=== PATIENT | male | born 1950 | race Caucasian/White ===

== ENCOUNTER 2016-08-07 15:22 | Outpatient (CLI) | payer MEDICARE, OTHER | END 2016-08-07 15:23 | disposition home or self-care (01) | DX: R22.42 Localized swelling, mass and lump, left lower limb (principal); R60.9 Edema, unspecified ==

== ENCOUNTER 2017-04-12 21:09 | Outpatient (CLI) | payer MEDICARE, OTHER | END 2017-04-12 21:10 | disposition critical access hospital (66) | LOC: EMS 21:09 | PROVIDERS: ATTEND Surgery | DX: M25.551 Pain in right hip (principal); W10.9XXA Fall (on) (from) unspecified stairs and steps, initial encounter; Y93.01 Activity, walking, marching and hiking; Y92.009 Unspecified place in unspecified non-institutional (private) residence as the place of occurrence of the external cause | CPT/HCPCS: A0425; A0429 ==

== ENCOUNTER 2017-04-12 21:15 | Inpatient (IN) | payer MEDICARE, OTHER ==
--- NOTE | 2017-04-12 22:42 | XRAY Preliminary Report ---
Exam: XR Hip w/Pelvis 2-3V RT IMPRESSION: 1. Subcapital right hip fracture. [facility] SITE ID: [id number]
--- NOTE | 2017-04-12 22:45 | XRAY Report ---
EXAM: RIGHT HIP AND PELVIS RADIOGRAPHY EXAM DATE: 04/12/2017 10:22 PM. HISTORY: Fall on right hip pain in groin. COMPARISONS: 03/23/2014. TECHNIQUE: 1 view of the pelvis and 1 view of the hip. FINDINGS: Bones: Subcapital right hip fracture. Joints: The bilateral hip, pubis symphysis, and sacroiliac joints are preserved. Soft Tissues: Radiation seeds in the prostate. IMPRESSION: 1. Subcapital right hip fracture. [facility] Referring Provider Line: [phone] SITE ID: [id number]
--- NOTE | 2017-04-12 22:52 | ED Physician Documentation ---
PD HPI LOWER EXT INJURY - Stated complaint Stated Complaint: FALL - Chief complaint Chief Complaint: Trauma Ext - History obtained from History obtained from: Patient, Family - History of Present Illness PD HPI LOW EXT INJURY LOCATION: Right, Hip Type of injury: Fall Where injury occurred: Home Timing - onset: Today Timing - duration: Minutes Timing - details: Abrupt onset, Still present Improved by: Rest, Immobilization Worsened by: Moving, Palpating Associated symptoms: No: Weakness, Numbness, Tingling, Swelling Contributing factors: No: Anticoagulated Similar symptoms before: Has not had sx before Recently seen: Not recently seen - Additional information Additional information: 67-year-old male with a history of prostate cancer has had a fall in his home this evening when he missed the last step and fell onto some linoleum on his right hip. He has severe pain in hip and is unable to get up and walk. He is brought into the hospital by EMS and while he is supine and not moving his pain is tolerable. If he moves his leg at all it hurts a lot. Review of Systems Constitutional: denies: Fever Eyes: denies: Decreased vision Ears: denies: Ear pain Nose: denies: Congestion Throat: denies: Sore throat Cardiac: denies: Chest pain / pressure, Palpitations Respiratory: reports: Cough. denies: Dyspnea GI: denies: Abdominal Pain, Nausea, Vomiting, Constipation, Diarrhea : denies: Dysuria, Frequency Skin: denies: Rash, Lesions Musculoskeletal: reports: Extremity pain, Joint pain. denies: Neck pain, Back pain Neurologic: denies: Generalized weakness, Focal weakness, Numbness PD PAST MEDICAL HISTORY - Past Medical History Cardiovascular: Hypertension GI: GERD : Incontinence Psych: None Musculoskeletal: Osteoarthritis - Past Surgical History Past Surgical History: Yes General: EGD, Colonoscopy Ortho: Knee replacement, Other - Present Medications Home Medications: Ambulatory Orders Medication Instructions Recorded Confirmed Atenolol 25 mg PO DAILY 12/06/12 04/12/17 B Complex C 11/Calcium/Dha/Q10 1 tab PO DAILY 12/06/12 04/12/17 [Brain Zegki-Kut-Oe Q10 Tablet] Mvi, Adult No.4 with Vit K 1 tab PO DAILY 12/06/12 04/12/17 [Infuvite Adult] Omeprazole 20 mg PO BID 12/06/12 04/12/17 oxyCODONE [Roxicodone] 5 mg PO Q4-6H 12/06/12 04/12/17 Ascorbic Acid [Vitamin C] 500 mg PO DAILY 04/12/17 04/12/17 Lutein/Zeaxanthin [Ocuvite Lutein 1 cap PO DAILY 04/12/17 04/12/17 25-5 mg Softgel] Magnesium Oxide [Magnesium] 500 mg PO DAILY 04/12/17 04/12/17 Valerian Root Extract [Valerian] 150 mg PO QPM PRN 04/12/17 04/12/17 - Allergies Allergies/Adverse Reactions: Allergies Allergy/AdvReac Type Severity Reaction Status Date / Time Iodinated Contrast- Oral and Allergy Intermediate Itching Verified 04/12/17 21: 18 IV Dye - Social History Does the pt smoke?: No Smoking Status: Never smoker Does the pt drink ETOH?: Yes Does the pt have substance abuse?: No PD ED PE NORMAL - Vitals Vital signs reviewed: Yes (Hypertensive) - General General: Alert and oriented X 3, No acute distress, Well developed/nourished - HEENT HEENT: Atraumatic, PERRL - Neck Neck: Supple, no meningeal sign, No bony TTP - Cardiac Cardiac: RRR, No murmur - Respiratory Respiratory: No respiratory distress, Clear bilaterally - Abdomen Abdomen: Soft, Non tender - Back Back: No CVA TTP, No spinal TTP - Derm Derm: Normal color, Warm and dry, No rash - Extremities Extremities: No deformity, No edema, Other (There is no shortening of the right leg there is pain with any movement of the leg especially with external rotation. The pain seems to be centered in the groin.) - Neuro Neuro: No motor deficit, No sensory deficit - Psych Psych: Normal mood, Normal affect Results - Vitals Vitals: Vital Signs - 24 hr 04/12/17 21:24 Temperature 37.0 C Heart Rate 83 Respiratory 18 Rate Blood Pressure 158/86 H O2 Saturation 95 Oxygen O2 Source Room air - EKG (time done) 0219 Rate: Rate (enter#) (77) Rhythm: NSR, LAE QRS: Low voltage Compare to prior EKG: Old EKG unavailable Computer interpretation: Agree with computer - Labs Labs: Laboratory Tests 04/13/17 01:55 WBC 12.8 H RBC 4.70 Hgb 14.5 Hct 41.5 L MCV 88.3 MCH 30.8 MCHC 34.9 RDW 13.5 Plt Count 152 MPV 7.6 Neut # 11.4 H Lymph # 0.8 L Hamilton # 0.6 Eos # 0.0 Baso # 0.0 Absolute Nucleated RBC 0.01 Nucleated RBCs 0.1 - Rads (name of study) Right hip Radiology: Prelim report reviewed (Impression: 1. Subcapital right hip fracture.), EMP read indepedently, See rad report PD MEDICAL DECISION MAKING - ED course Complexity details: reviewed old records, reviewed results, re-evaluated patient , considered differential, d/w patient, d/w family ED course: 67-year-old male with a fall in his home has fractured his right hip. Dr. Ray Ma is consulted in the case and would like us to consult medicine for admission.The patient appears comfortable when he is not moving at all. Departure - Departure Disposition: [address] [facility] DC/Xfer Clinical Impression: Hip fracture Qualifiers: Encounter type: initial encounter Fracture type: closed Laterality: right Qualified Code(s): S72.001A - Fracture of unspecified part of neck of right femur, initial encounter for closed fracture Condition: Stable
[2017-04-13] MEDS ORDERED: KETOROLAC 60 MG/2 ML VIAL IVP STA (00:05)
[2017-04-13] MEDS ORDERED: KETOROLAC 30 MG/ML VIAL ONE ×2 (00:10→00:38)
[2017-04-13] MEDS ORDERED: SODIUM CHLORIDE FLUSH 0.9% 10 ML SYRINGE IVP ONE (00:59)
[2017-04-13 02:11] LABS: BASOPHILS % (AUTO) 0.3 %; EOSINOPHILS % (AUTO) 0.1 %; HCT - HEMATOCRIT 41.5 % (42.0-52.0); HGB - HEMOGLOBIN 14.5 g/dL (14.0-18.0); LYMPHOCYTES # (AUTO) 0.8 10^3/uL (1.5-3.5); LYMPHOCYTES % (AUTO) 6.3 %; MEAN CORPUSCULAR HEMOGLOBIN 30.8 pg (27.0-31.0); MEAN CORPUSCULAR HGB CONC 34.9 g/dL (32.0-36.0); MEAN CORPUSCULAR VOLUME 88.3 fL (80.0-94.0); MEAN PLATELET VOLUME 7.6 fL (7.4-11.4); MONOCYTES # (AUTO) 0.6 10^3/uL (0.0-1.0); MONOCYTES % (AUTO) 4.9 %; NEUTROPHILS # (AUTO) 11.4 10^3/uL (1.5-6.6); NEUTROPHILS % (AUTO) 88.4 %; NUCLEATED RED BLOOD CELLS AUTO 0.1 /100WBC; RED CELL DISTRIBUTION WIDTH 13.5 % (12.0-15.0); UNCORRECTED WHITE BLOOD COUNT 12.8 x10^3/uL; WHITE BLOOD COUNT 12.8 x10^3/uL (4.8-10.8)
[2017-04-13 02:22] LABS: ALBUMIN/GLOBULIN RATIO 1.9 (1.0-2.2); BILIRUBIN,TOTAL 0.8 mg/dL (0.2-1.0); CREATININE 0.8 mg/dL (0.6-1.2); POTASSIUM 4.3 mmol/L (3.5-5.0); TOTAL PROTEIN 6.7 g/dL (6.7-8.2)
--- NOTE | 2017-04-13 02:33 | HISTORY & PHYSICAL EXAMINATION ---
DATE OF ADMISSION: 04/12/2017 PRIMARY CARE PHYSICIAN: Dr. Holbrook CHIEF COMPLAINT: Fall and right hip pain. HISTORY OF PRESENT ILLNESS: The patient is a pleasant 67-year-old white male who was brought into [facility] ER after he suffered a mechanical fall. He was at his home and missed the last step on stairs and that is how he fell on his right side. He denied chest pain, shortness of breath, dizziness, fainting, syncope, fever, or any other symptoms prior to or following the fall. He did not suffer head injury. Upon presentation to the ER the patient was hemodynamically stable and underwent hip and pelvis x-ray, which confirmed right subcapital hip fracture. At the ER no further tests available. EKG and laboratories have not yet been done, and I am awaiting to review those results. The ER physician contacted orthopedic surgeon, Dr. Ma who requested the hospitalist service to admit this patient and he is planning to do surgical repair of the right hip later on 04/13/2017. I am admitting this patient. I am also seeing him for presurgical clearance. The patient reports that he had chest pain and shortness of breath, being fatigued on exertion about a year ago , at which time he underwent a treadmill cardiac stress test ordered by his primary care physician, Dr. Holbrook. The test was negative. Subsequently, the patient's symptoms improved and he attributes those past symptoms of being on a hormonal therapy agent, which he used for prostate cancer. He tells me that this medication he used back then had multiple other side effects such as ankle swelling and most important the profound fatigue. After he stopped taking the medication his symptoms gradually resolved. Most recently he had been walking with his once or twice a day. He walks at least half a mile. During the past few weeks or months he did not have exertional symptoms. PAST MEDICAL HISTORY: 1. Hypertension. 2. History of prostate cancer, had been on hormone therapy, subsequently received radioactive seeds as well. 3. Gastroesophageal reflux. 4. Osteoarthritis with chronic pain occasionally taking opiates, status post left knee replacement, status post shoulder surgery. 5. Degenerative disk disease of the spine status post cervical laminectomy. 5. Status post cholecystectomy in 2013. OUTPATIENT MEDICATIONS: 1. Valerian root extract. 2. Oxycodone p.r.n. 3. Omeprazole. 4. Multivitamin. 5. Ocuvite. 6. Vitamin supplements. 7. Atenolol. 8. Magnesium supplement. ALLERGIES: IODINATED CONTRAST. FAMILY HISTORY: Positive for coronary artery disease and lung cancer in the father. SOCIAL HISTORY: The patient does not smoke. He drinks socially. CODE STATUS: FULL CODE. REVIEW OF SYSTEMS: Please see pertinent positives and negatives listed at History of Present Illness; I completed a 12-point review which was otherwise negative. PHYSICAL EXAMINATION: VITAL SIGNS: Temperature 37 Celsius, heart rate in the 80s, blood pressure 150/ 80, respiratory rate 18, oxygen saturation 95% on room air. GENERAL: The patient is a well developed male who was not in distress. MUSCULOSKELETAL: With decreased range of motion of the right hip and lower extremity. SKIN: Without jaundice or pallor. LYMPH: No lymphedema. NEUROLOGIC: Neurologically alert, oriented, nonfocal. PSYCHIATRIC: Cooperative. HEART: S1, S2. No pathologic murmur. RESPIRATORY: Lungs clear to auscultation without wheeze or crackles. ABDOMEN: Obese, nondistended, benign. Bowel tones present. ASSESSMENT AND PLAN: The patient is a 67-year-old male who is getting admitted after he suffered a mechanical fall and fractured his right hip. He will undergo surgery per the orthopedic service. I am admitting him under the hospitalist service and most likely we will be able to give a presurgical clearance. At this point, I do not see any obvious complication. The patient does not have exertional symptoms. He had been on beta-darrel and during the perioperative period I would probably continue the beta darrel to prevent perioperative cardiac complication. I would also recommend DVT prophylaxis. I am awaiting laboratories and an EKG. Time spent in the care of this patient was 45 minutes. JOB #: [id number] EXT JOB #:[id number] MARTHA
[2017-04-13] MEDS ORDERED: oxyCODONE 5 MG TABLET PO PRN (02:48)
[2017-04-13] MEDS ORDERED: SODIUM CHLORIDE FLUSH 0.9% 10 ML SYRINGE IVP PRN ×2 (02:48→03:12)
[2017-04-13] MEDS ORDERED: ONDANSETRON 4 MG/2 ML VIAL IVP PRN ×2 (02:48→03:12)
[2017-04-13] MEDS ORDERED: ACETAMINOPHEN 325 MG TABLET PO PRN ×2 (02:48→03:12)
[2017-04-13] MEDS ORDERED: MORPHINE 2 MG/ML SYRINGE IVP PRN ×2 (02:48→03:12)
[2017-04-13] MEDS ORDERED: KETOROLAC 15 MG/ML VIAL IVP PRN (02:53)
[2017-04-13] MEDS ORDERED: [UNRECOGNIZED DRUG - OTHER] PO PRN (02:55)
[2017-04-13] MEDS ORDERED: LABETALOL 5 MG/1 ML 20 ML MDV IV PRN ×2 (02:57→03:12)
[2017-04-13] MEDS ORDERED: [UNRECOGNIZED DRUG - OTHER] PO PRN (03:12)
[2017-04-13 03:25] LABS: INR 1.1 (0.8-1.2)
[2017-04-13] MEDS: KETOROLAC 15 MG/ML VIAL IVP PRN (05:24)
[2017-04-13] MEDS ORDERED: LACTATED RINGERS 1,000 ML IV SCH (06:00)
[2017-04-13] MEDS ORDERED: SODIUM CHLORIDE FLUSH 0.9% 10 ML SYRINGE IVP SCH (06:00)
[2017-04-13] MEDS: PANTOPRAZOLE 40 MG TABLET PO SCH ×2 (06:31→16:03)
[2017-04-13] MEDS: SODIUM CHLORIDE FLUSH 0.9% 10 ML SYRINGE IVP SCH ×3 (06:31→22:27)
[2017-04-13] MEDS: LACTATED RINGERS 1,000 ML IV SCH (06:31)
[2017-04-13] MEDS: ENOXAPARIN 40 MG/0.4 ML SYRINGE SUBQ SCH (07:35)
[2017-04-13] MEDS: POLYETHYLENE GLYCOL 3350 17 GM PACKET PO SCH (07:35)
[2017-04-13] MEDS ORDERED: LUTEIN PO SCH (09:00)
[2017-04-13] MEDS ORDERED: ATENOLOL 25 MG TABLET PO SCH (09:00)
[2017-04-13] MEDS ORDERED: MAGNESIUM OXIDE 500 MG PO SCH ×2 (09:00)
[2017-04-13] MEDS ORDERED: DHA PO SCH (09:00)
[2017-04-13] MEDS ORDERED: [UNRECOGNIZED DRUG - REMARK] PO SCH (09:00)
[2017-04-13] MEDS ORDERED: CALCIUM PO SCH (09:00)
[2017-04-13] MEDS ORDERED: ZEAXANTHIN PO SCH (09:00)
[2017-04-13] MEDS ORDERED: [UNRECOGNIZED DRUG - OTHER] PO SCH (09:00)
[2017-04-13] MEDS ORDERED: POLYETHYLENE GLYCOL 3350 17 GM PACKET PO SCH (09:00)
[2017-04-13] MEDS ORDERED: FAMOTIDINE 20 MG TABLET PO SCH (09:00)
[2017-04-13] MEDS ORDERED: ENOXAPARIN 40 MG/0.4 ML SYRINGE SUBQ SCH (09:00)
[2017-04-13] MEDS ORDERED: NON FORMULARY MED (Omeprazole [Omeprazole] 20 MG) PO SCH ×2 (09:00)
[2017-04-13] MEDS ORDERED: ASCORBIC ACID 500 MG PO SCH ×2 (09:00)
[2017-04-13] MEDS: MAGNESIUM OXIDE 400 MG TABLET PO SCH (10:39)
[2017-04-13] MEDS: [UNRECOGNIZED DRUG - REMARK] PO SCH (10:39)
[2017-04-13] MEDS: DHA PO SCH (10:39)
[2017-04-13] MEDS: CALCIUM PO SCH (10:39)
[2017-04-13] MEDS: OCUVITE LUTEIN PO SCH (10:39)
[2017-04-13] MEDS: [UNRECOGNIZED DRUG - OTHER] PO SCH (10:39)
[2017-04-13] MEDS: ASCORBIC ACID CHEW 500 MG TABLET PO SCH (10:39)
[2017-04-13] MEDS: ATENOLOL 25 MG TABLET PO SCH (10:42)
[2017-04-13] MEDS ORDERED: LACTATED RINGERS 1,000 ML IV ONE ×2 (15:12)
[2017-04-13] MEDS ORDERED: BUPIVACAINE 0.25%-EPI 1:200000 PF 30 ML VIAL SUBQ ONE ×3 (15:12→15:50)
[2017-04-13] MEDS ORDERED: MIDAZOLAM 2 MG/2 ML VIAL IVP ONE (15:45)
[2017-04-13] MEDS ORDERED: KETOROLAC 30 MG/ML VIAL IVP ONE (15:45)
[2017-04-13] MEDS ORDERED: DEXAMETHASONE 4 MG/ML VIAL IVP ONE (15:45)
[2017-04-13] MEDS ORDERED: PROPOFOL 200 MG/20 ML VIAL IVP ONE (15:45)
[2017-04-13] MEDS ORDERED: fentaNYL 100 MCG/2 ML VIAL IVP ONE (15:45)
[2017-04-13] MEDS ORDERED: LIDOCAINE-PF 2% 10 ML AMP SUBQ ONE (15:45)
[2017-04-13] MEDS ORDERED: ONDANSETRON 4 MG/2 ML VIAL IVP ONE (15:45)
[2017-04-13] MEDS ORDERED: ACETAMINOPHEN 1,000 MG/100 ML 100 ML IV PRN (15:53)
--- NOTE | 2017-04-13 16:00 | CONSULTATION NOTE ---
Referring Provider Name of Referring Provider:: ED Consult Date: 04/13/17 Chief Complaint - Chief Complaint Chief Complaint: Right Hip Pain After fall from step History of Present Illness - Admitted From Admitted From:: ED - History Obtained From Records Reviewed: ED, [facility] History obtained from: Patient - History of Present Illness HPI Comment/Other: This 67 yo male missed the bottom step coming down stairs in his home, landing directly on his Right hip on the floor. He had immediate pain and was unable to bear weight. He was transported to the ED at [facility] where radiographs confirmed a Garden I Right Femoral Neck Fracture. He was admitted to the Hospitalist service and Orthopaedic Surgery was consulted. He denies LOC, Syncope, Dizziness, or other precipitating events. He denies other injuries. 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 - POLST Patient has POLST: No POLST Status: Full Code Meds/Allgy - Home Medications Home Medications: Ambulatory Orders Medication Instructions Recorded Confirmed Atenolol 25 mg PO DAILY 12/06/12 04/12/17 B Complex C 11/Calcium/Dha/Q10 1 tab PO DAILY 12/06/12 04/12/17 [Brain Oegcc-Nhj-Yu Q10 Tablet] Mvi, Adult No.4 with Vit K 1 tab PO DAILY 12/06/12 04/12/17 [Infuvite Adult] Omeprazole 20 mg PO BID 12/06/12 04/12/17 oxyCODONE [Roxicodone] 5 mg PO Q4-6H 12/06/12 04/12/17 Ascorbic Acid [Vitamin C] 500 mg PO DAILY 04/12/17 04/12/17 Lutein/Zeaxanthin [Ocuvite Lutein 1 cap PO DAILY 04/12/17 04/12/17 25-5 mg Softgel] Magnesium Oxide [Magnesium] 500 mg PO DAILY 04/12/17 04/12/17 Valerian Root Extract [Valerian] 150 mg PO QPM PRN 04/12/17 04/12/17 - Allergies Allergies/Adverse Reactions: Allergies Allergy/AdvReac Type Severity Reaction Status Date / Time Iodinated Contrast- Oral and Allergy Intermediate Itching Verified 04/12/17 21: 18 IV Dye Review of Systems - Genitourinary Genitourinary: reports: Incontinence, Other (Prostate Cancer) Exam - Vital Signs Reviewed Vital Signs: Yes Vital Signs: Vital Signs x48h Temp Pulse Resp BP Pulse Ox 04/13/17 15:52 100 04/13/17 12:13 36.8 C 72 18 137/76 H 95 - Physical Exam General Appearance: positive: No acute distress, Alert Eyes Bilateral: positive: Normal inspection ENT: positive: ENT inspection nml Neck: positive: Nml inspection Respiratory: positive: No respiratory distress, Breath sounds nml Cardiovascular: positive: Regular rate & rhythm Peripheral Pulses: positive: 2+ Abdomen: positive: Non-tender, Nml bowel sounds, No distention. negative: Guarding Back: positive: Nml inspection Skin: positive: Color nml, No rash, Warm, Dry Extremities: positive: Other (Tender with any manipulation of Right hip. Keeps Right leg in externally rotated position.). negative: Pedal edema, Calf tenderness, Obey's sign/cords Neurologic/Psychiatric: positive: Oriented x3, Motor nml, Sensation nml, Mood/ affect nml Conclusion/Plan - Diagnosis Diagnosis: 1. Right Femoral Neck Garden I (Nondisplaced) Fracture, closed. 2. Fall from one height to another. 3. Hypertension. 4. Incontinence secondary to Prostate cancer and treatment. - Plan Plan: To OR for percutaneous screw fixation of Right Femoral Neck Fracture. - Lab Results Fish Bones: 04/13/17 01:55 04/13/17 01:55 - Diagnostic Imaging Results Diagnostic Imaging Results: positive: Read independently (Right Garden I Femoral Neck Fracture.)
--- NOTE | 2017-04-13 16:11 | OPERATIVE REPORT ---
Operative Report - General Admit Date: 04/13/17 Procedure Date: 04/13/17 Pre-Op Diagnosis: Right Garden I Femoral Neck Fracture Procedure Performed: Percutaneous screw fixation Right Femoral Neck Fracture. Post Op Diagnosis: Same. - Procedure Note Primary Surgeon: Andrea Ma MD Anesthesia Provider: Hadley Johns CRNA Anesthesia Technique: General ET tube, Local Pathology: Same IV Fluids (mL): 1,000 Estimated Blood Loss (mL): 25 Complications: None. - Other Other Information/Narrative: 1. Disposition: PACU >> [facility] 2. Condition: Stable. 3. Implants: Synthes 7,3 mm Cannulated screws, 32 mm thread lenght x 3; 100, 95 , & 95 mm. 4. Plan: Mobilize with PT in am, crutch or walker ambulation, touch down weight bearing Right Lower Extremity. Then discharge to home.
--- NOTE | 2017-04-13 16:18 | Discharge Plan ---
Discharge Plan Diet: Regular Activity Restrictions: TDWB RLE with walker/crut Shower Restrictions: No Driving Restrictions: Yes Assistance Devices: Walker, Crutches Weight Bearing: Touchdown Weightbearing R No Smoking: If you smoke, Please STOP! Call for help. <Andrea Ma - Last Filed: 04/13/17 16:14> Diet: Cardiac Activity Restrictions: Activity as Tolerated Shower Restrictions: No Driving Restrictions: No Weight Bearing: Other (PER ORTHOPEDIC) Follow-Up Care: Outpatient Rehab - PT No Smoking: If you smoke, Please STOP! Call for help. <Gi Salazar - Last Filed: 04/14/17 13:52> Disposition: 01 Home, Self Care Condition: Good Instruction Topics: Hip Safety Master Daily Tasks, Fx Hip Common Questions Additional Instructions or Follow Up instructions: PLEASE CONTINUE TO FOLLOWUP WITH ORTHOPEDIC FOR FURTHER ORDERS FOR HIP FRACTURE. PLEASE CONTINUE TO DO PHYSICAL THERAPY AND ADVANCE TOLERATED WITH TOE TOUCH TO FULL WEIGHT TAKE ALL HOME MEDICATIONS ORDERED. TYLENOL IS GOOD FOR PAIN. GET PLENTY OF REST AND WALK MUCH POSSIBLE AND TOLERATED PLEASE SEE YOUR PRIMARY CARE PROVIDER WITHIN THE NEXT WEEK FOR EVALUATION AND FURTHER PLANS RETURN TO THE ER IF SYMPTOMS WORSEN OR IF YOU HAVE CHEST PAIN OR SHORTNESS OF BREATH OR FEVER Follow-up with: Andrea Ma MD [Provider Admit Priv/Credential] -
--- NOTE | 2017-04-13 16:29 | XRAY Report ---
RIGHT HIP X-RAY: 04/13/2017 HISTORY: Right hip fracture, for ORIF. FINDINGS/IMPRESSION: Two views of the right hip are obtained during ORIF of a fracture. Three screws are in place. JOB #: [id number] EXT JOB #: [id number] MTDYulisa
[2017-04-13] MEDS: oxyCODONE 5 MG TABLET PO PRN (16:51)
[2017-04-13] MEDS: ASPIRIN EC 325 MG TABLET PO SCH ×3 (22:27→23:32)
[2017-04-14] MEDS: LACTATED RINGERS 1,000 ML IV SCH (00:50)
[2017-04-14] MEDS: oxyCODONE 5 MG TABLET PO PRN ×2 (05:12→10:02)
[2017-04-14 05:50] LABS: BASOPHILS % (AUTO) 0.2 %; EOSINOPHILS # (AUTO) 0.1 10^3/uL (0.0-0.7); EOSINOPHILS % (AUTO) 1.2 %; HCT - HEMATOCRIT 40.6 % (42.0-52.0); HGB - HEMOGLOBIN 14.2 g/dL (14.0-18.0); LYMPHOCYTES # (AUTO) 0.9 10^3/uL (1.5-3.5); LYMPHOCYTES % (AUTO) 8.6 %; MEAN CORPUSCULAR HGB CONC 35.1 g/dL (32.0-36.0); MEAN CORPUSCULAR VOLUME 88.4 fL (80.0-94.0); MEAN PLATELET VOLUME 7.5 fL (7.4-11.4); MONOCYTES # (AUTO) 0.5 10^3/uL (0.0-1.0); MONOCYTES % (AUTO) 4.8 %; NEUTROPHILS # (AUTO) 9.2 10^3/uL (1.5-6.6); NEUTROPHILS % (AUTO) 85.2 %; NUCLEATED RED BLOOD CELLS AUTO 0.1 /100WBC; RED BLOOD COUNT 4.59 10^6/uL (4.70-6.10); RED CELL DISTRIBUTION WIDTH 13.2 % (12.0-15.0); UNCORRECTED WHITE BLOOD COUNT 10.8 x10^3/uL; WHITE BLOOD COUNT 10.8 x10^3/uL (4.8-10.8)
[2017-04-14 06:09] LABS: ALBUMIN/GLOBULIN RATIO 1.6 (1.0-2.2); BILIRUBIN,TOTAL 0.8 mg/dL (0.2-1.0); CALCIUM 9.5 mg/dL (8.5-10.3); CREATININE 0.9 mg/dL (0.6-1.2); MAGNESIUM 2.1 mg/dL (1.7-2.8); PHOSPHORUS 2.8 mg/dL (2.5-4.6); POTASSIUM 4.7 mmol/L (3.5-5.0); TOTAL PROTEIN 6.3 g/dL (6.7-8.2)
[2017-04-14] MEDS: SODIUM CHLORIDE FLUSH 0.9% 10 ML SYRINGE IVP SCH ×2 (06:32→14:26)
[2017-04-14] MEDS: PANTOPRAZOLE 40 MG TABLET PO SCH (06:32)
[2017-04-14] MEDS: MAGNESIUM OXIDE 400 MG TABLET PO SCH (09:29)
[2017-04-14] MEDS: ASCORBIC ACID CHEW 500 MG TABLET PO SCH (09:29)
[2017-04-14] MEDS: ATENOLOL 25 MG TABLET PO SCH (09:29)
[2017-04-14] MEDS: ASPIRIN EC 325 MG TABLET PO SCH (09:29)
[2017-04-14] MEDS: ENOXAPARIN 40 MG/0.4 ML SYRINGE SUBQ SCH (09:29)
[2017-04-14] MEDS: KETOROLAC 15 MG/ML VIAL IVP PRN (09:29)
[2017-04-14] MEDS: DHA PO SCH (09:30)
[2017-04-14] MEDS: [UNRECOGNIZED DRUG - REMARK] PO SCH (09:30)
[2017-04-14] MEDS: OCUVITE LUTEIN PO SCH (09:30)
[2017-04-14] MEDS: [UNRECOGNIZED DRUG - OTHER] PO SCH (09:30)
[2017-04-14] MEDS: CALCIUM PO SCH (09:30)
[2017-04-14] MEDS: POLYETHYLENE GLYCOL 3350 17 GM PACKET PO SCH (10:01)
[2017-04-14 13:09] VITALS: BP 139/86
--- NOTE | 2017-04-14 13:58 | DISCHARGE SUMMARY ---
"Discharge Summary Admit Date: 04/13/17 Discharge Date: 04/14/17 Discharging Provider: JEFF ACUÑA APRN Code Status: Attempt Resuscitation Condition at Discharge: Good Discharge Disposition: 01 Home, Self Care Discharge Facility Name: HOME - DIAGNOSES Admission Diagnoses: Diagnosis: 1. Right Femoral Neck Garden I (Nondisplaced) Fracture, closed with screwed fixation 2. Fall from one height to ground level, acute 3. Essential benign Hypertension. 4. Incontinence secondary to Prostate cancer and treatment Discharge Diagnoses with Status of Each Condition: Diagnosis: 1. Right Femoral Neck Garden I (Nondisplaced) Fracture, closed with screwed fixation 2. Fall from one height to ground level, acute 3. Essential benign Hypertension. 4. Incontinence secondary to Prostate cancer and treatment - HPI History of Present Illness: This 67 yo male missed the bottom step coming down stairs in his home, landing directly on his Right hip on the floor. He had immediate pain and was unable to bear weight. He was transported to the ED at [facility] where radiographs confirmed a Garden I Right Femoral Neck Fracture. He was admitted to the Hospitalist service and Orthopaedic Surgery was consulted. - CONSULTS | PROCEDURES Consultations: DR JOSEPH-ORTHO - HOSPITAL COURSE Hospital Course: 67-year-old male with a history of prostate cancer has had a fall in his home this evening when he missed the last step and fell onto some linoleum on his right hip. He has severe pain in hip and is unable to get up and walk. He is brought into the hospital by EMS and while he is supine and not moving his pain is tolerable. While in the ER he was found to have a right subcapital hip fracture. He was taken to the OR the next morning with Dr Ray Joseph. He had percutaneous screw fixation of the right femoral neck fracture in the OR for Right Femoral Neck Garden I (Nondisplaced) Fracture, closed. He was started on IVF NS and LR for gentle hydration. NPO on first night before surgery. He was given tylenol and toradol for pain. He was given oxycodone for the severe pain. He continued on home medications and supplements after surgery. He continued on his home dosage atenolol for blood pressure. Urinary output was monitored for retention due to his BPH. he worked with PT prior to discharge. His pain was well controlled. He was on a regular diet. he had daily lab draws and all lab values were within normal limits at discharge. He was on DVT prophylaxis during treatment. He was discharged home with family and for followup with orthopedic and outpatient physical therapy. - ALLERGIES Allergies/Adverse Reactions: Allergies Allergy/AdvReac Type Severity Reaction Status Date / Time Iodinated Contrast- Oral and Allergy Intermediate Itching Verified 04/12/17 21: 18 IV Dye - MEDICATIONS Home Medications: Ambulatory Orders Medication Instructions Recorded Confirmed Atenolol 25 mg PO DAILY 12/06/12 04/12/17 B Complex C 11/Calcium/Dha/Q10 1 tab PO DAILY 12/06/12 04/12/17 [Brain Jwxyl-Ypy-Wu Q10 Tablet] Mvi, Adult No.4 with Vit K 1 tab PO DAILY 12/06/12 04/12/17 [Infuvite Adult] Omeprazole 20 mg PO BID 12/06/12 04/12/17 oxyCODONE [Roxicodone] 5 mg PO Q4-6H 12/06/12 04/12/17 Ascorbic Acid [Vitamin C] 500 mg PO DAILY 04/12/17 04/12/17 Lutein/Zeaxanthin [Ocuvite Lutein 1 cap PO DAILY 04/12/17 04/12/17 25-5 mg Softgel] Magnesium Oxide [Magnesium] 500 mg PO DAILY 04/12/17 04/12/17 Valerian Root Extract [Valerian] 150 mg PO QPM PRN 04/12/17 04/12/17 Acetaminophen [Tylenol] 650 mg PO Q4HR PRN #0 tablet 04/13/17 Aspirin EC [Ecotrin] 325 mg PO BID tablet 04/13/17 - PHYSICAL EXAM AT DISCHARGE General Appearance: positive: No acute distress, Alert Eyes Bilateral: positive: Normal inspection, PERRL, EOMI ENT: positive: ENT inspection nml, Pharynx nml, No signs of dehydration Neck: positive: Nml inspection, Thyroid nml, No JVD Respiratory: positive: Chest non-tender, No respiratory distress, Breath sounds nml Cardiovascular: positive: Regular rate & rhythm, No murmur, No gallop Peripheral Pulses: positive: 2+ Abdomen: positive: Non-tender, No organomegaly, Nml bowel sounds, No distention Rectal: positive: Non-tender Back: positive: Nml inspection, CVA tenderness (R) Skin: positive: Color nml, No rash, Warm, Dry Extremities: positive: Non-tender, Full ROM, Nml appearance Neurologic/Psychiatric: positive: Oriented x3, CN's nml (2-12), Motor nml, Sensation nml, Mood/affect nml - LABS Result Diagrams: 04/14/17 05:09 04/14/17 05:09 Other Lab Results: Abnormal Lab Results 04/13/17 04/13/17 04/13/17 01:55 01:55 01:55 WBC 12.8 x10^3/uL H x10^3/uL (4.8-10.8) RBC Hct 41.5 % L % (42.0-52.0) Neut # 11.4 10^3/uL H 10^3/uL (1.5-6.6) Lymph # 0.8 10^3/uL L 10^3/uL (1.5-3.5) PT 13.0 secs H secs (9.9-12.6) Anion Gap Estimated GFR (MDRD) Glucose 132 mg/dL H mg/dL (70-100) Total Protein 04/14/17 04/14/17 05:09 05:09 WBC RBC 4.59 10^6/uL L 10^6/uL (4.70-6.10) Hct 40.6 % L % (42.0-52.0) Neut # 9.2 10^3/uL H 10^3/uL (1.5-6.6) Lymph # 0.9 10^3/uL L 10^3/uL (1.5-3.5) PT Anion Gap 5.0 L (6-13) Estimated GFR (MDRD) 84 L (>89) Glucose 118 mg/dL H mg/dL (70-100) Total Protein 6.3 g/dL L g/dL (6.7-8.2) - DIAGNOSTIC IMAGING Diagnostic Imaging Results: Final report reviewed - FOLLOW UP Follow Up: Patient was instructed to followup with orthopedic with Dr Ray Joseph. He was to see his primary care provider within one week of discharge. He verbally understood all instructions given. Patient was take home with family and vital signs were stable. Time spent on discharge was 40 minutes for planning and assessment - TIME SPENT Time Spent in Discharge (Minutes): 40 (discharge assessment and planning)"
--- NOTE | 2017-04-20 12:47 | XRAY Report ---
Fluoroscopy time only, no images submitted for interpretation. Fluoroscopy time 0 minutes, 34 seconds. MTDD
--- NOTE | 2017-05-17 00:35 | OPERATIVE REPORT ---
DATE OF SURGERY: 04/13/2017 00:00:00 PREOPERATIVE DIAGNOSIS: Right Garden 1 femoral neck fracture. POSTOPERATIVE DIAGNOSIS: Right Garden 1 femoral neck fracture. NAME OF PROCEDURE: Percutaneous screw fixation of the right femoral neck fracture. SURGEON: Andrea Ma MD. ANESTHESIA: Hadley Johns CRNA. ANESTHESIA TECHNIQUE: General endotracheal and local. PATHOLOGY: Same. FLUIDS: 1000 of lactated Ringer's. BLOOD LOSS: 25 mL. COMPLICATIONS: None. DISPOSITION: PACU, then Med/Surg. CONDITION: Stable. IMPLANTS Synthes 7.3 mm cannulated screws with 32 mm thread length times x 3 of 100, 95 and 95 mm in length. PLAN: To mobilize the patient in the morning with crutch walker ambulation, touchdown weightbearing r ight lower extremity and then discharged to home. INDICATIONS: This is an otherwise healthy 67-year-old male who sustained a minimally displaced, close d fracture of his right femoral neck (Garden 1) in a ground level fall. He was evaluated in the emerg ency department with radiographs and admitted to Med-Surg. Consultation was provided and care was dis cussed extensively with the patient. We agreed to proceed with a percutaneous screw fixation of a rig ht garden 1 femoral neck fracture. PROCEDURE IN DETAIL: After consent and identification, the patient was brought to the operating room in a supine position on the operating litter. After induction of a general endotracheal anesthesia an d appropriate monitoring, the patient was transferred to the fracture table with the right lower extr emity placed in the traction boot, left lower extremity placed in the Christos stirrup and a padded blake hermelinda post was placed in the perineum. Fluoroscopy was used to verify adequate reduction of the garden 1 femoral neck fracture and that it had not displaced. We then prepped and draped the right hip in t he usual sterile fashion with using a shower curtain. After an appropriate timeout was conducted, we made a lateral incision targeted with fluoroscopic que mendosa inferior to the trochanteric ridge. A small stab wound of approximately 2.5 cm in length was us ed. Through this stab wound we penetrated the iliotibial band and under fluoroscopic guidance advance d 3 guidewires into the femoral neck verifying our position in the anterior, inferior posterior, and central position with AP and lateral fluoroscopy. The guidewires were measured and 3 percutaneous scr ews were inserted using standard AO technique by cannulated drilling over the wires and then advancin g the screws with 32 mm thread length. Position of all 3 screws was verified. The guidewires were rem kirti. The incision was irrigated thoroughly and closed with 2 interrupted subcuticular 2-0 Vicryl sut ures. Mastisol and Steri-Strips with a sterile [place] dressing. On completion of procedure, the patient was extubated and transferred to the recovery room in good co ndition having tolerated the procedure well. JOB #: [id number] EXT JOB #:[id number]
== END 2017-04-14 16:25 | disposition home or self-care (01) | DRG 482 ==
LOC: EDUNIT# → ED 21:15 → MS2 04-13 02:48 → ED 04-13 02:59
PROVIDERS: ADMIT Internal Medicine; ATTEND Nurse Practitioner
PROC: 0QH634Z Insertion of Internal Fixation Device into Right Upper Femur, Percutaneous Approach (ICD-10-PCS; principal; 2017-04-13 12:00)
DX: S72.011A Unspecified intracapsular fracture of right femur, initial encounter for closed fracture (principal); W10.8XXA Fall (on) (from) other stairs and steps, initial encounter; Y92.008 Other place in unspecified non-institutional (private) residence as the place of occurrence of the external cause; I10 Essential (primary) hypertension; Z85.46 Personal history of malignant neoplasm of prostate; K21.9 Gastro-esophageal reflux disease without esophagitis; M19.90 Unspecified osteoarthritis, unspecified site; N39.498 Other specified urinary incontinence; Z96.652 Presence of left artificial knee joint; Z90.49 Acquired absence of other specified parts of digestive tract; Z79.891 Long term (current) use of opiate analgesic; Z79.899 Other long term (current) drug therapy
CPT/HCPCS: 36415; 80053; 83690; 83735; 84100; 84484; 85025; 85610; 85730; 86850; 86900; 86901; 93005; 96374; 99283; 99284; 99285

== ENCOUNTER 2019-02-16 14:06 | Outpatient (CLI) | payer MEDICARE, OTHER ==
[2019-02-16 14:32] LABS: CREATININE 0.9 mg/dL (0.6-1.2)
[2019-02-16] MEDS ORDERED: IOVERSOL 320 100 ML VIAL IVP ONE ×2 (14:43→17:42)
--- NOTE | 2019-02-16 15:13 | CT Report ---
Reason: PLEURTIC CP Procedure Date: 02/16/2019 Accession Number: [id number] / [id number] Procedure: CT - ANGIO CHEST W/WO CPT Code: FULL RESULT: EXAM: CT ANGIOGRAM CHEST EXAM DATE: 02/16/2019 02:48 PM. CLINICAL HISTORY: PLEURTIC CP. COMPARISON: None. TECHNIQUE: Routine helical imaging was performed through the chest in the pulmonary arterial phase. IV Contrast: OPTI 320 80ML. Reconstructions: Coronal 3-D MIP reconstructions.Sagittal and coronal. In accordance with CT protocol optimization, one or more of the following dose reduction techniques were utilized for this exam: automated exposure control, adjustment of mA and/or KV based on patient size, or use of iterative reconstructive technique. FINDINGS: Pulmonary Arteries: Diagnostic quality: Adequate through the segmental arteries. No evidence for acute or chronic pulmonary emboli. RV/LV is within normal limits. There is no interventricular septal bowing. There is no reflux of contrast material in the IVC. Lungs/Pleura: Mild atelectasis and scarring in right middle lobe, lingual and both lung bases. No consolidation, nodules, or edema. No effusions or pneumothorax. Mediastinum: Normal. No cardiac enlargement or adenopathy. Thoracic Aorta: Unremarkable. Upper Abdomen: Status post cholecystectomy. Other: None. IMPRESSION: Normal pulmonary CT angiogram. No pulmonary emboli. RADIA
== END 2019-02-16 14:07 | disposition home or self-care (01) ==
LOC: DI 14:06
PROVIDERS: ATTEND Internal Medicine
DX: R07.81 Pleurodynia (principal)
CPT/HCPCS: 36415; 71275; 82565; Q9967

== ENCOUNTER 2021-03-01 12:17 | Emergency (ER) | payer MEDICARE, OTHER ==
[2021-03-01] MEDS ORDERED: diphenhydrAMINE INJ 50 MG/ML VIAL IVP STA (12:28)
--- NOTE | 2021-03-01 12:30 | ED Physician Documentation ---
History of Present Illness - Stated complaint Stated Complaint: STROKE SYMPTOMS - Additonal information Additional information: 70-year-old male presents to the emergency department via private vehicle for sudden onset right-sided facial droop that began about 10 to 15 minutes prior to arrival. He began to notice that he could not whistle or speak fluidly and he had some right-sided facial droop of the mouth. He does report that he woke up this morning and thought the vision in his left eye was blurry, so he made an eye appointment for later this afternoon and was going to attend to it, until the noted the right sided droop. hx of prostate cancer (lupron shots Q3 months) and htn and arthritis on plaquenil meds: sulfasalazine, prednisone, plaquenil, atenelol,omeprazole, ruth when pt is in the CT scanner she does report that the patient reported his right upper eye lid was mildly droopy 24 hours ago, but they attributed it to allergies Review of Systems Constitutional: denies: Fever, Chills Eyes: reports: Loss of vision Ears: reports: Reviewed and negative Nose: reports: Reviewed and negative Cardiac: denies: Chest pain / pressure, Palpitations Respiratory: denies: Dyspnea, Cough GI: denies: Abdominal Pain, Nausea, Vomiting : denies: Dysuria Skin: denies: Rash, Lesions Musculoskeletal: denies: Neck pain, Back pain Neurologic: reports: Focal weakness, Difficulty speaking. 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 - Present Medications Home Medications: Ambulatory Orders Medication Instructions Recorded Confirmed B Complex C 11/Calcium/Dha/Q10 1 tab PO DAILY 12/06/12 04/12/17 [Brain Tnhat-Vmg-Kc Q10 Tablet] Mvi, Adult No.4 with Vit K 1 tab PO DAILY 12/06/12 04/12/17 [Infuvite Adult] Omeprazole 20 mg PO BID 12/06/12 04/12/17 atenoloL [Atenolol] 25 mg PO DAILY 12/06/12 04/12/17 oxyCODONE [Roxicodone] 5 mg PO Q4-6H 12/06/12 04/12/17 Ascorbic Acid [Vitamin C] 500 mg PO DAILY 04/12/17 04/12/17 Lutein/Zeaxanthin [Ocuvite Lutein 1 cap PO DAILY 04/12/17 04/12/17 25-5 mg Softgel] Magnesium Oxide [Magnesium] 500 mg PO DAILY 04/12/17 04/12/17 Valerian Root Extract [Valerian] 150 mg PO QPM PRN 04/12/17 04/12/17 Acetaminophen [Tylenol] 650 mg PO Q4HR PRN #0 tablet 04/13/17 Aspirin EC [Ecotrin] 325 mg PO BID tablet 04/13/17 Aspirin [Bucks Aspirin] 81 mg PO DAILY #30 tab.chew 03/01/21 - Allergies Allergies/Adverse Reactions: Allergies Allergy/AdvReac Type Severity Reaction Status Date / Time Iodinated Contrast Media Allergy Intermediate Itching Verified 03/01/21 12:26 - Social History Does the pt smoke?: No Smoking Status: Former smoker Does the pt drink ETOH?: Yes Does the pt have substance abuse?: No - POLST Patient has POLST: No POLST Status: Full Code PD ED PE EXPANDED - General General: Alert, No acute distress, Well developed/nourished - HEENT HEENT: Atraumatic, PERRL - Eyes Eyes: PERRL - Neck Neck: Supple w/out meningeal sx. No: Adenopathy - Cardiac Cardiac: Regular Rate, Radial strong equal, Cap refill < 2 sec. No: Murmur Present - Respiratory Respiratory: Clear to ausultation cecile. No: Distress, Labored - Abdomen Abdomen: Normal Bowel sounds. No: Tender to palpation - Derm Derm: Normal color, Warm and dry - Neuro Neuro: Alert and Oriented X 3. No: CNII-XII intact (right sided facial droop at nasal labial god, right tongue deviation ) - GCS Eye Opening: Spontaneous Motor: Obeys Commands Verbal: Oriented Total: 15 Results - Vitals Vitals: Vital Signs - 24 hr 03/01/21 03/01/21 03/01/21 12:21 12:48 13:02 Temperature 36.6 C Heart Rate 73 69 66 Respiratory 17 19 17 Rate Blood Pressure 133/87 H 135/77 H 125/74 O2 Saturation 98 99 95 03/01/21 13:30 Temperature Heart Rate 65 Respiratory 23 Rate Blood Pressure 110/79 O2 Saturation 98 Oxygen O2 Source Room air - EKG (time done) 1254 Rate: Rate (enter#) (67) Rhythm: NSR [place]: Normal Intervals: Normal CT. No: Prolonged QT QRS: Normal Ischemia: Normal ST segments Compare to prior EKG: Old EKG unavailable Computer interpretation: Agree with computer - Labs Labs: Laboratory Tests 03/01/21 03/01/21 03/01/21 12:30 12:30 12:30 WBC 6.1 RBC 4.28 L Hgb 14.0 Hct 39.4 L MCV 92.1 MCH 32.7 H MCHC 35.5 RDW 13.1 Plt Count 148 MPV 9.1 Neut # (Auto) 4.7 Lymph # (Auto) 0.9 L Sharkey # (Auto) 0.3 Eos # (Auto) 0.1 Baso # (Auto) 0.0 Absolute Nucleated RBC 0.00 Nucleated RBC % 0.0 PT 14.2 H INR 1.3 H Sodium 139 Potassium 4.4 Chloride 106 Carbon Dioxide 26 Anion Gap 7.0 BUN 17 Creatinine 0.8 Estimated GFR (MDRD) 95 Glucose 121 H Calcium 10.6 H Total Bilirubin 0.8 AST 23 ALT 28 Alkaline Phosphatase 64 Troponin I High Sens Total Protein 6.8 Albumin 4.8 Globulin 2.0 L Albumin/Globulin Ratio 2.4 H Lipase 35 03/01/21 12:30 WBC RBC Hgb Hct MCV MCH MCHC RDW Plt Count MPV Neut # (Auto) Lymph # (Auto) Sharkey # (Auto) Eos # (Auto) Baso # (Auto) Absolute Nucleated RBC Nucleated RBC % PT INR Sodium Potassium Chloride Carbon Dioxide Anion Gap BUN Creatinine Estimated GFR (MDRD) Glucose Calcium Total Bilirubin AST ALT Alkaline Phosphatase Troponin I High Sens 2.4 Total Protein Albumin Globulin Albumin/Globulin Ratio Lipase - Rads (name of study) Angio head Radiology: Final report received (Negative for acute intracranial hemorrhage. No significant intracranial abnormality is seen. No significant intracranial arterial abnormalities are seen.) angio neck Radiology: Final report received (No hemodynamically significant stenosis can be seen within the arteries of the neck.) PD MEDICAL DECISION MAKING - ED course Complexity details: reviewed results, re-evaluated patient, d/w patient, d/w family, d/w hr consultant (Dr. Gil neurologist) ED course: 70-year-old male presents to the emergency department for evaluation of acute o nset right-sided facial droop. hx of htn, prostate cancer and RA on plaquenil and steroids. symptoms began at 1210pm. Code stroke was initiated. Screning labs unrevealing, CT angio nead and neck negative. 1310: I have spoken on the phone with Dr. Gil telestroke neurologist. We discussed the history clinical exam findings as well as CT angio head and neck. Given such a low NIH stroke scale score she would not recommend TPA for this gentleman. 1340: Dr. [facility] stroke neurologist has consulted with the patient. She suspects that this may be an early Stacy's palsy despite the obvious lack of forehead involvement at this time. She would recommend initiation of a daily aspirin and an outpatient MRI of his brain. She does not feel that he warrants admission to the hospital at this time. I have reevaluated the patient and he does still persist with a right-sided facial droop and no forehead involvement. I discussed with the patient and his the CT imagings that were fairly unrevealing as well as his lab work, EKG and chest x-ray. First dose of aspirin will be given here in the emergency department. 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 Patient and his were advised to return to the emergency department if he develops any sudden onset headache, loss of vision, or if he develops focal weakness in his arms or legs. Otherwise close follow-up with Dr. Holbrook his primary care provider early next week. Departure - Departure Disposition: 01 Home, Self Care Clinical Impression: Stroke-like symptoms Condition: Stable Record reviewed to determine appropriate education?: Yes Instructions: Stroke Self Care Follow-Up: Gi Holbrook MD [Primary Care Provider] - Prescriptions: Aspirin [Bucks Aspirin] 81 mg PO DAILY #30 tab.chew Comments: Chandler you are seen in the ER today when you developed right-sided facial droop. We did do a CT angiogram of your head and neck that did not show any worrisome findings. Your labs EKG and chest x-ray were all also essentially normal. Because your symptoms were worrisome for stroke you were evaluated by a telestroke neurologist Dr. Gil. As your symptoms are mild and she is not 100% certain that this is a stroke as it may be a form of Stacy's palsy, TPA was not administered. She does recommend very close follow-up with your primary doctor early next week to be have an MRI of your brain arranged. She would also recommend that you start a daily aspirin 81 mg. Continue all your other medications as already sche duled. If at any point you find that you are having a sudden severe headache, any loss of vision any arm or leg weakness you are to return immediately to the ER. NIHSS - Time Time: 12:35 - Level of Consciousness Level of consciousness: (1) Not alert, but arousable by minor stimulation to obey, or answer LOC Questions: (0) Answers both Q's correct LOC Commands: (0) Performs both correctly - Gaze Best Gaze: (0) Normal - Visual Visual: (0) No loss - Facial Palsy Facial Palsy: (1) Minor paralysis - Motor Arms (both separate) Motor Arm (right): (0) No drift Motor Arm (left): (0) No drift - Motor Legs (both separate) Motor Leg (right): (0) No drift Motor Leg (left): (0) No drift - Limb Ataxia Limb Ataxia: (0) Absent - Sensory Sensory: (0) Normal - Best Language Best Language: (0) No aphasia - Dysarthria Dysarthria: (0) Normal - Extinction and Inattention (formally neg Extinction and inattention: (0) No abnormality - Total Score/Results Total Score/Result: 2
[2021-03-01 12:43] LABS: INR 1.3 (0.8-1.2); PT - PROTHROMBIN TIME 14.2 secs (9.9-12.6)
[2021-03-01 12:45] LABS: BASOPHILS % (AUTO) 0.3 %; EOSINOPHILS # (AUTO) 0.1 10^3/uL (0.0-0.7); EOSINOPHILS % (AUTO) 1.3 %; HCT - HEMATOCRIT 39.4 % (42.0-52.0); LYMPHOCYTES # (AUTO) 0.9 10^3/uL (1.5-3.5); MEAN CORPUSCULAR HEMOGLOBIN 32.7 pg (27.0-31.0); MEAN CORPUSCULAR HGB CONC 35.5 g/dL (32.0-36.0); MEAN CORPUSCULAR VOLUME 92.1 fL (80.0-94.0); MEAN PLATELET VOLUME 9.1 fL (7.4-11.4); MONOCYTES # (AUTO) 0.3 10^3/uL (0.0-1.0); MONOCYTES % (AUTO) 5.3 %; NEUTROPHILS # (AUTO) 4.7 10^3/uL (1.5-6.6); NEUTROPHILS % (AUTO) 77.8 %; PLT - PLATELET COUNT 148 10^3/uL (130-450); RED BLOOD COUNT 4.28 10^6/uL (4.70-6.10); RED CELL DISTRIBUTION WIDTH 13.1 % (12.0-15.0); WHITE BLOOD COUNT 6.1 x10^3/uL (4.8-10.8)
--- NOTE | 2021-03-01 13:05 | CT Report ---
PROCEDURE: ANGIO HEAD W/WO INDICATIONS: L sided facial droop CONTRAST: IV CONTRAST: Isovue 300 ml: 80 PO CONTRAST: *NO PO CONTRAST TECHNIQUE: Precontrast 4.5 mm thick angled axial sections acquired from the foramen magnum to the vertex. Afte r the administration of intravenous contrast, 1 mm thick sections acquired through the [place] of [place] is. Postcontrast 4.5 mm thick sections then re-acquired from the foramen magnum to the vertex. 3-di mensional lpftwqo-ncfszoqqo-arcymwknxf (MIP) and/or volume rendering reformats were acquired of the c entral intracranial vasculature. For radiation dose reduction, the following was used: automated ex posure control, adjustment of mA and/or kV according to patient size. COMPARISON: Correlation is made with the accompanying neck CT angiogram, 03/01/2021. FINDINGS: Image quality: Excellent. Anterior circulation: Intracranial internal carotid arteries are normal in size and flow. The flow within the paired anterior cerebral arteries is normal and symmetric. The flow within the middle cer ebral arteries is normal and symmetric. The anterior communicating artery is seen. No aneurysms are seen. Posterior circulation: Bilateral type origins of the posterior cerebral arteries can be seen, w ith an associated hypoplastic basilar artery. The distal vertebral arteries are within normal limits. No aneurysms are seen. CSF spaces: Ventricles are normal in size and shape. Basal cisterns are patent. No extra-axial flu id collections. Brain: No midline shift. No intracranial bleeds or masses. العلي-white matter interface appears int act. Skull and face: Calvarium and facial bones appear intact, without suspicious lesions. Sinuses: Visualized sinuses and mastoids are clear. IMPRESSION: Negative for acute intracranial hemorrhage. No significant intracranial abnormality is seen. No significant intracranial arterial abnormalities are seen. Note: Case discussed by telephone with Melania Thompson at 12:03 PM [place] time on 03/01/2021. Reviewed by: Jose Craig MD on 03/01/2021 12:03 PM AKVITO Approved by: Jose Craig MD on 03/01/2021 12:03 PM AKVITO Station ID: [id number]
--- NOTE | 2021-03-01 13:07 | CT Report ---
PROCEDURE: ANGIO NECK W INDICATIONS: L sided facial droop, L neck pain CONTRAST: IV CONTRAST: Isovue 300 ml: 80 PO CONTRAST: *NO PO CONTRAST TECHNIQUE: After the administration of intravenous contrast, 1.5 mm axial sections acquired from the aortic arch to the [place] of [place]. Coronal 3-D maximum intensity projection (MIP) and/or volume rendering ref ormats were then performed. For radiation dose reduction, the following was used: automated exposur e control, adjustment of mA and/or kV according to patient size. COMPARISON: Correlation is made with the accompanying head CT angiogram, 03/01/2021. FINDINGS: Image quality: There is streak artifact seen to the level of the shoulders. Carotid system: The great vessels demonstrate a conventional anatomy as they arise from the aortic a rch. The origins of the common carotid arteries appear patent. The common carotid arteries demonstr ate normal calibers and courses. The bifurcation regions demonstrate atherosclerotic calcification a nd irregularity, yet without a hemodynamically significant stenosis. The more distal internal caroti d arteries demonstrate normal caliber and course. Posterior circulation: The origins of the vertebral arteries appear patent. The more superior porti ons of the vertebral arteries demonstrate normal course and caliber. They join to form a normal appe aring basilar artery. Soft tissues: Visualized neck soft tissues demonstrate no suspicious abnormalities. The thyroid is normal in size and there are no incidental findings. Bones: No suspicious bony lesions. Relatively prominent cervical spine degenerative changes are see n, with fusion changes inferiorly. There is reversal of the normal cervical lordosis. IMPRESSION: No hemodynamically significant stenosis can be seen within the arteries of the neck. Relatively prominent cervical spine degenerative changes are seen, with fusion changes inferiorly. Note: Case discussed by telephone with Melania Thompson at 12:30 PM [place] time on 03/01/2021. The estimate of stenosis included in the report of the imaging study was calculated using the NASCET method Reviewed by: Jose Craig MD on 03/01/2021 12:06 PM AKDT Approved by: Jose Craig MD on 03/01/2021 12:06 PM AKDT Station ID: [id number]
[2021-03-01 13:15] LABS: ALBUMIN 4.8 g/dL (3.2-5.5); ALBUMIN/GLOBULIN RATIO 2.4 (1.0-2.2); BILIRUBIN,TOTAL 0.8 mg/dL (0.2-1.0); CALCIUM 10.6 mg/dL (8.5-10.3); CREATININE 0.8 mg/dL (0.6-1.2); POTASSIUM 4.4 mmol/L (3.5-5.0); TOTAL PROTEIN 6.8 g/dL (6.7-8.2)
--- NOTE | 2021-03-01 13:38 | XRAY Report ---
PROCEDURE: Chest 1 View X-Ray INDICATIONS: chest pain TECHNIQUE: One view of the chest was acquired. COMPARISON: None FINDINGS: Surgical changes and devices: None. Lungs and pleura: No pleural effusions or pneumothorax. Lungs are clear. Mediastinum: Mediastinal contours appear normal. Heart size is normal. Bones and chest wall: No suspicious bony lesions. Overlying soft tissues appear unremarkable. Bila teral glenohumeral hemiarthroplasty noted. IMPRESSION: No acute cardiopulmonary findings Reviewed by: Cj Negro MD on 03/01/2021 12:37 PM AKDT Approved by: Cj Negro MD on 03/01/2021 12:37 PM AKDT Station ID: [id number]
[2021-03-01] MEDS ORDERED: ASPIRIN CHEW 81 MG TABLET PO STA (13:59)
[2021-03-01 14:17] VITALS: BP 115/81
[2021-03-01] MEDS ORDERED: IOPAMIDOL-300 100 ML VIAL IVP ONE (14:51)
[2021-03-01] MEDS ORDERED: IOPAMIDOL-300 100 ML VIAL ONE (15:18)
== END 2021-03-01 14:17 | disposition home or self-care (01) ==
LOC: ED 12:17
DX: R29.810 Facial weakness (principal); H53.8 Other visual disturbances; R47.9 Unspecified speech disturbances; C61 Malignant neoplasm of prostate; I10 Essential (primary) hypertension; M06.9 Rheumatoid arthritis, unspecified; Z79.52 Long term (current) use of systemic steroids; Z79.899 Other long term (current) drug therapy; Z87.891 Personal history of nicotine dependence
CPT/HCPCS: 36415; 70496; 70498; 71045; 80053; 83690; 84484; 85025; 85610; 93005; 96374; 99284; A9270; J1200; Q9967

== ENCOUNTER 2022-02-12 10:23 | Day surgery (SDC) | payer MEDICARE, OTHER ==
[2022-02-12] MEDS ORDERED: LACTATED RINGERS 1,000 ML IV ONE (10:47)
[2022-02-12] MEDS ORDERED: LIDOCAINE-MPF 2% 5 ML VIAL ONE (11:04)
[2022-02-12] MEDS ORDERED: PROPOFOL 500 MG/50 ML 500 MG/50 ML VIAL ONE (11:04)
--- NOTE | 2022-02-12 11:28 | ANESTHESIA ---
Pre-Anesthesia VS, & Labs - Diagnosis history of ulcers, screening exam - Procedure EGD and colonoscopy Vital Signs: Temp Pulse Resp BP Pulse Ox 35.7 C L 67 16 113/79 95 02/12/22 10:48 02/12/22 10:48 02/12/22 10:48 02/12/22 10:48 02/12/22 10:48 Height: 5 ft 10 in Weight (kg): 102.6 kg Body Mass Index: 32.4 BMI Classification: Obese - NPO >8 hours Home Medications and Allergies Home Medications: Ambulatory Orders Hydroxychloroquine [Plaquenil] 1 tab DAILY 02/11/22 atenoloL [Atenolol] 25 mg PO DAILY 12/06/12 oxyCODONE [Roxicodone] 5 mg PO Q4-6H 12/06/12 Hydroxychloroquine [Plaquenil] 1 tab DAILY 02/11/22 Allergies/Adverse Reactions: Allergies Allergy/AdvReac Type Severity Reaction Status Date / Time Iodinated Contrast Media Allergy Intermediate Itching Verified 02/11/22 13:05 aspirin AdvReac Unknown Verified 02/12/22 10:36 tramadol AdvReac Unknown Verified 02/12/22 10:45 Anes History & Medical History - Anesthetic History Anesthesia Complications: reports: No previous complications - Medical History Cardiovascular: reports: Hypertension Pulmonary: reports: None Gastrointestinal: reports: GERD, Ulcers, Hiatal hernia, Cholelithiasis Urinary: reports: None Neuro: reports: None Musculoskeletal: reports: Osteoarthritis, Other (chronic pain) Endocrine/Autoimmune: reports: None Blood Disorders: reports: Anemia Skin: reports: None Smoking Status: Former smoker (quit 20 years ago) Psychosocial: reports: No issues indicated History of Cancer?: No Other Past Medical History: Autoimmune disorder, unknown type - Surgical History General: reports: Cholecystectomy, Colonoscopy, EGD Cardiothoracic: reports: Cardiac catheterization Urologic: reports: Prostatic surgery (brachytherapy) Gynecologic: reports: Other Orthopedic: reports: Knee replacement, Shoulder arthroplasty, Spine surgery (ACDF C6-T1), Other (hip pinning) Exam General: Alert, Oriented x3, Cooperative, No acute distress Mouth Openin Fingerbreadth Neck Mobility: Normal Mallampati classification: III Thyromental Distance: 4-6 cm Mental/Cognitive Status: Alert/Oriented X3, Normal for patient Plan Anesthesia Type: General, Total IV Consent for Procedure(s) Verified and Reviewed: Yes Code Status: Attempt Resuscitation ASA classification: 3-Severe systemic disease Is this case an emergency?: No
[2022-02-12] MEDS ORDERED: MIDAZOLAM 2 MG/2 ML VIAL ONE (11:52)
[2022-02-12] MEDS ORDERED: fentaNYL 100 MCG/2 ML VIAL ONE (11:53)
[2022-02-12] MEDS ORDERED: BENZOCAINE/TETRACAINE/BUTAMBEN 20 GM TOP ONE ×2 (11:57)
[2022-02-12] MEDS ORDERED: BENZOCAINE/TETRACAINE/BUTAMBEN 20 GM ONE (12:03)
[2022-02-12] MEDS ORDERED: LACTATED RINGERS 200 ML IV ONE (12:30)
[2022-02-12 12:55] VITALS: BP 113/86
--- NOTE | 2022-02-12 13:28 | ANESTHESIA POST OP EVALUATION ---
Anesthesia Post Eval - Post Anesthesia Eval Vitals: Last Vital Signs Temp 36.0 C L 02/12/22 12:54 Pulse 64 02/12/22 12:54 Resp 16 02/12/22 12:54 BP 113/86 H 02/12/22 12:54 Pulse Ox 95 02/12/22 12:54 CV Function Including HR & BP: Stable Pain Control: Satisfactory Nausea & Vomiting: Negative Mental Status: Baseline Respiratory Status: Airway Patent Hydration Status: Satisfactory Anesthesia Complications: None
== END 2022-02-12 10:24 | disposition home or self-care (01) ==
LOC: SDS 10:23
PROVIDERS: ATTEND Surgery
PROC: 0DB78ZX Excision of Stomach, Pylorus, Via Natural or Artificial Opening Endoscopic, Diagnostic (ICD-10-PCS; principal; 2022-02-12 11:30)
DX: Z12.11 Encounter for screening for malignant neoplasm of colon (principal); K29.50 Unspecified chronic gastritis without bleeding; K64.8 Other hemorrhoids; K21.9 Gastro-esophageal reflux disease without esophagitis; K44.9 Diaphragmatic hernia without obstruction or gangrene; I10 Essential (primary) hypertension; E66.9 Obesity, unspecified; Z68.32 Body mass index [BMI] 32.0-32.9, adult; Z87.891 Personal history of nicotine dependence
CPT/HCPCS: 43239; A9270; G0121; J7120

== ENCOUNTER 2022-04-04 08:41 | Outpatient (CLI) | payer MEDICARE, OTHER ==
[2022-04-04 09:17] LABS: ALBUMIN 4.4 g/dL (3.2-5.5); ALBUMIN/GLOBULIN RATIO 1.9 (1.0-2.2); BILIRUBIN,TOTAL 0.7 mg/dL (0.2-1.0); CALCIUM 10.5 mg/dL (8.5-10.3); CREATININE 0.9 mg/dL (0.6-1.2); POTASSIUM 4.6 mmol/L (3.5-5.0); TOTAL PROTEIN 6.7 g/dL (6.7-8.2)
== END 2022-04-04 08:42 | disposition home or self-care (01) ==
LOC: LAB 08:41
PROVIDERS: ATTEND Internal Medicine Hematology & Oncology
DX: C61 Malignant neoplasm of prostate (principal); R74.01 Elevation of levels of liver transaminase levels
CPT/HCPCS: 36415; 80053

== ENCOUNTER 2022-10-09 13:50 | Outpatient (CLI) | payer MEDICARE, OTHER ==
--- NOTE | 2022-10-09 16:50 | MRI Report ---
PROCEDURE: LUMBAR SPINE WO INDICATIONS: NUMBNESS OF LOWER LIMB TECHNIQUE: Noncontrast sagittal T1 spin echo and T2 fast echo, sagittal STIR, axial T1 and T2 fast spin echo thr ough the lumbar spine. In cases with scoliosis, additional coronal T2 fast spin echo may be performe d. COMPARISON: None. FINDINGS: Image quality: Excellent. Alignment and Curvature: There is normal bony alignment. Bone Marrow: Marrow is of normal overall signal. No acute vertebral body compression fractures. Spinal Cord: Conus medullaris terminates at the L1-L2 level. Visualized cord demonstrates normal si gnal and size. Paraspinous Soft Tissues: No paravertebral masses. T12-L1: Normal in appearance. L1-L2: Mild left posterior lateral disc protrusion. No significant central canal stenosis. There i s moderate right foraminal narrowing with mild flattening deformity on the exiting right L1 nerve fredi t. There is mild to moderate left foraminal narrowing. L2-L3: Mild bilateral facet hypertrophy. No canal stenosis or foraminal stenosis. L3-L4: Bilateral facet hypertrophy. No central canal stenosis. Mild right foraminal narrowing. Mode rate left foraminal narrowing. There is a small focal left foraminal disc protrusion which exerts mil d mass effect on the exiting left L3 nerve root. L4-L5: Mild posterior disc. Osteophyte. Facet hypertrophy. Borderline canal stenosis. Hqqh-nq-enyry ate bilateral foraminal stenosis. L5-S1: Bilateral facet hypertrophy. No canal stenosis. Mild to moderate bilateral foraminal narrowi ng. IMPRESSION: 1. Multilevel facet arthropathy. 2. No significant canal stenosis. 3. At L3-L4, there is a small focal left foraminal disc protrusion which exerts mild mass effect on t he exiting left L3 nerve root. Question: Does this patient have any symptoms of a left L3 radiculitis ? 4. Multilevel foraminal narrowing as described above. Reviewed by: Andrea Rutherford MD on 10/09/2022 4:48 PM PDT Approved by: Andrea Rutherford MD on 10/09/2022 4:48 PM PDT Station ID: [id number]
== END 2022-10-09 13:51 | disposition home or self-care (01) ==
LOC: DI 13:50
PROVIDERS: ATTEND Internal Medicine
DX: M51.16 Intervertebral disc disorders with radiculopathy, lumbar region (principal); M47.816 Spondylosis without myelopathy or radiculopathy, lumbar region; M47.26 Other spondylosis with radiculopathy, lumbar region; M48.061 Spinal stenosis, lumbar region without neurogenic claudication; M47.817 Spondylosis without myelopathy or radiculopathy, lumbosacral region; M48.07 Spinal stenosis, lumbosacral region

== ENCOUNTER 2022-10-13 08:00 | Outpatient (CLI) | payer MEDICARE, OTHER ==
[2022-10-13 12:14] LABS: CSF - GLUCOSE 66 mg/dL (45-70)
[2022-10-13 12:18] LABS: TOTAL PROTEIN,CSF 100 mg/dL (15-60)
== END 2022-10-13 23:59 | disposition home or self-care (01) ==
LOC: LAB.R 08:00
PROVIDERS: ATTEND Internal Medicine
DX: R53.1 Weakness (principal)
CPT/HCPCS: 81599; 82945; 84157; 87070; 87205

== ENCOUNTER 2022-10-13 08:19 | Day surgery (SDC) | payer MEDICARE, OTHER ==
[2022-10-13] MEDS ORDERED: LIDOCAINE 2% ABBOJECT 100 MG/5 ML SYRINGE ONE (09:15)
[2022-10-13] MEDS ORDERED: LIDOCAINE-MPF 2% 5 ML VIAL ONE ×2 (09:16→09:32)
--- NOTE | 2022-10-13 09:37 | ANESTHESIA PROCEDURE NOTE ---
Diagnosis: weakness of limbs Consent for Procedure(s) Verified and Reviewed: Yes Height and Weight: Height 5 ft 10 in Weight (kg) 97 kg Body Mass Index 32.4 Vital Signs: Temp Pulse Resp BP Pulse Ox O2 Flow Rate 36.2 C L 73 19 125/78 96 10/13/22 08:37 10/13/22 08:37 10/13/22 08:37 10/13/22 08:37 10/13/22 08:37 Allergies Iodinated Contrast Media Allergy (Intermediate, Verified 02/11/22 13:05) Itching pt states that he needs to be premedicated prior to imaging aspirin Adverse Reaction (Verified 02/12/22 10:36) Unknown ulcer tramadol Adverse Reaction (Verified 02/12/22 10:45) Unknown ASA classification: 3-Severe systemic disease Is this case an emergency?: No Anes. Monitoring and Equipment: Sterile prep and drape Anes. Procedure Start Time: 08:50 Anes. Procedure Stop Time: 09:20 Procedure Notes: diagnostic LP as request of PCP. Attempt with patient lateral at L3-4 bone only, to sitting, attempt L3-4 with 20G needle from tray, CSF clear and free flowing. 4 vials collected with 2-3ml each. Patient tolerated well, discharge instructions hand written by me given to patient.
[2022-10-13 09:46] VITALS: BP 112/72
== END 2022-10-13 08:20 | disposition home or self-care (01) ==
LOC: PACU 08:19 → SDS 08:20
PROVIDERS: ATTEND Nurse Anesthetist, Certified Registered
PROC: 009U3ZX Drainage of Spinal Canal, Percutaneous Approach, Diagnostic (ICD-10-PCS; principal; 2022-10-13 09:00)
DX: G81.93 Hemiplegia, unspecified affecting right nondominant side (principal); G81.94 Hemiplegia, unspecified affecting left nondominant side; R29.898 Other symptoms and signs involving the musculoskeletal system; R20.0 Anesthesia of skin
CPT/HCPCS: 81599; 82945; 84157; 87070; 87205

== ENCOUNTER 2022-10-22 17:19 | Outpatient (CLI) | payer MEDICARE ==
--- NOTE | 2022-10-23 15:27 | MRI Report ---
PROCEDURE: CERVICAL SPINE WO INDICATIONS: WEAKNESS TECHNIQUE: Noncontrast sagittal T1 spin echo and T2 fast spin echo, sagittal STIR, foraminal oblique sagittal T2 fast spin echo, and axial gradient echo or T2 fast spin echo through the cervical spine. COMPARISON: None. FINDINGS: Image quality: Excellent. Alignment and Curvature: There is exaggeration of normal cervical curvature. There is trace anteroli sthesis of C3 on C4. Fusion is present from C6 through T1. Bone Marrow: Marrow demonstrates normal overall signal. Spinal Cord: Visualized spinal cord has normal size and signal. No cerebellar tonsillar herniation. Paraspinous Soft Tissues: No paravertebral masses. Prevertebral soft tissues are normal in thicknes s. Discs Multilevel severe desiccation is present with fusion as noted above. C2-C3: Minimal disc bulge without spinal stenosis. Moderate to severe bilateral foraminal narrowing with uncovertebral hypertrophy. C3-C4: Minimal disc bulge without spinal stenosis. Moderate to severe bilateral foraminal narrowing , right greater than left with uncovertebral hypertrophy. C4-C5: Mild disc bulge with effacement of the anterior thecal sac. Severe right and moderate to sam re left foraminal narrowing with uncovertebral hypertrophy. C5-C6: Mild disc bulge with effacement anterior thecal sac. Moderate to severe left and severe right foraminal narrowing with uncovertebral hypertrophy. C6-C7: Mild disc bulge without spinal stenosis. Moderate bilateral foraminal narrowing with uncovert ebral hypertrophy. C7-T1: Mild disc bulge without spinal stenosis. Mild left and moderate to severe right foraminal junior rowing with uncovertebral hypertrophy. IMPRESSION: C6-T1 fusion. 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 Multilevel effacement of the anterior thecal sac/minimal spinal stenosis secondary to disc bulge. Reviewed by: Viri Starr MD on 10/23/2022 3:25 PM PDT Approved by: Viri Starr MD on 10/23/2022 3:25 PM PDT Station ID: [id number]
== END 2022-10-22 17:20 | disposition home or self-care (01) ==
LOC: DI 17:19
PROVIDERS: ATTEND Internal Medicine
DX: M48.02 Spinal stenosis, cervical region (principal); M50.31 Other cervical disc degeneration, high cervical region; Z98.1 Arthrodesis status

== ENCOUNTER 2022-10-24 15:33 | Outpatient (CLI) | payer MEDICARE ==
[2022-10-26 11:08] LABS: IMMUNOGLOBULIN A (IGA) 111 mg/dL (61-437); IMMUNOGLOBULIN G (IGG) 707 mg/dL (603-1613); IMMUNOGLOBULIN M (IGM) 66 mg/dL (15-143)
== END 2022-10-24 15:34 | disposition home or self-care (01) ==
LOC: LAB 15:33
PROVIDERS: ATTEND Psychiatry & Neurology Neurology
DX: G61.0 Guillain-Barre syndrome (principal)
CPT/HCPCS: 36415; 82784

== ENCOUNTER 2022-10-27 10:02 | Emergency (ER) | payer MEDICARE, OTHER ==
[2022-10-27 10:28] VITALS: BP 124/84
--- NOTE | 2022-10-27 10:59 | ED Physician Documentation ---
History of Present Illness - Stated complaint Stated Complaint: MALE - Chief complaint Chief Complaint: Abd Pain - History obtained from History obtained from: Patient - History of Present Illness Pain level max: 0 Pain level now: 0 - Additonal information Additional information: Patient is a 72-year-old male who presents to the emergency department complaint of constipation. States this been ongoing for the past several weeks. He is seeing his doctor and was placed on lactulose. He states he has small bowel movements, but feels that he is still constipated. No vomiting. No fevers. No abdominal pain. 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 He states he has tried MiraLAX and Colace as well. Review of Systems Constitutional: denies: Fever, Chills Ears: denies: Ear pain Respiratory: denies: Dyspnea, Cough GI: denies: Vomiting, Hematemesis, Bloody / black stool Skin: denies: Rash Musculoskeletal: denies: Neck pain, Back pain Neurologic: denies: Headache PD PAST MEDICAL HISTORY - Past Medical History Cardiovascular: Hypertension Respiratory: None Neuro: None Endocrine/Autoimmune: None GI: GERD : None HEENT: None Psych: None Musculoskeletal: Osteoarthritis, Other Derm: None - Past Surgical History Past Surgical History: Yes General: Cholecystectomy, Colonoscopy, EGD Ortho: Knee replacement, Shoulder arthroplasty, Spine surgery, 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 - Present Medications Home Medications: Ambulatory Orders Medication Instructions Recorded Confirmed atenoloL [Atenolol] 25 mg PO DAILY 12/06/12 10/13/22 oxyCODONE [Roxicodone] 5 mg PO Q4-6H 12/06/12 10/13/22 Hydroxychloroquine [Plaquenil] 1 tab ORAL DAILY 02/11/22 10/13/22 Peg 3350/Na Sulf,Bicarb,Cl/KCl 4,000 ml PO ONCE 1 Days #1 each 10/27/22 [Golytely] - Allergies Allergies/Adverse Reactions: Allergies Allergy/AdvReac Type Severity Reaction Status Date / Time Iodinated Contrast Media Allergy Intermediate Itching Verified 10/27/22 10:06 aspirin AdvReac Unknown Verified 10/27/22 10:06 tramadol AdvReac Unknown Verified 10/27/22 10:06 - Social History Does the pt smoke?: No Smoking Status: Former smoker (quit 20 years ago) Does the pt drink ETOH?: Yes Does the pt have substance abuse?: No - POLST Patient has POLST: No POLST Status: Full Code PD ED PE NORMAL - Vitals Vital signs reviewed: Yes - General General: Alert and oriented X 3, No acute distress - HEENT HEENT: Moist mucous membranes - Neck Neck: Supple, no meningeal sign - Cardiac Cardiac: RRR - Respiratory Respiratory: No respiratory distress, Clear bilaterally - Abdomen Abdomen: Soft, Non tender, Non distended - Derm Derm: Warm and dry - Neuro Neuro: Alert and oriented X 3 - Psych Psych: Normal mood, Normal affect Results - Vitals Vitals: Vital Signs - 24 hr 10/27/22 10/27/22 10:06 10:26 Temperature 36.2 C L Heart Rate 77 69 Respiratory 18 16 Rate Blood Pressure 119/82 H 124/84 H O2 Saturation 98 97 Oxygen O2 Source Room air PD Medical Decision Making - ED course Complexity details: reviewed results, re-evaluated patient, considered differential, d/w patient, d/w family ED course: Patient does not have any signs of bowel obstruction. No vomiting. No signi ficant abdominal pain. Abdomen is not distended. Very soft. Offered options for constipation including oral CT contrast or GoLytely as a colonoscopy prep. Patient would like to do the GoLytely as a colonoscopy prep. We will prescribe this for him. Recommend that he talk to his doctor about medication such as methylnaltrexone for opiate-induced constipation. Patient will return if he develops pain, vomiting, fevers or other new or worrisome symptoms. Patient counseled regarding signs and symptoms for which I believe and urgent re- evaluation would be necessary. Patient with good understanding of and agreement to plan and is comfortable going home at this time This document was made in part using voice recognition software. While efforts are made to proofread this document, sound alike and grammatical errors may occur. Departure - Departure Disposition: 01 Home, Self Care Clinical Impression: Constipation Qualifiers: Constipation type: unspecified constipation type Qualified Code(s): K59.00 - Constipation, unspecified Condition: Good Instructions: ED Constipation Follow-Up: Gi Holbrook MD [Primary Care Provider] - Within 1 week Prescriptions: Peg 3350/Na Sulf,Bicarb,Cl/KCl [Golytely] 4,000 ml PO ONCE 1 Days #1 each Comments: Your prescription was sent to [facility] in [place]. Please use as directed. Make sure you are drinking plenty of water. Please follow-up with your doctor for further care. Please return if you worsen. You can talk to your doctor about Relistor as well which is a constipation medication for opiate-induced constipation. Please return for vomiting, fevers, worsening abdominal pain, or other new or worrisome symptoms Discharge Date/Time: 10/27/22 11:06
--- OUTSIDE RECORDS SUMMARY | 2022-10-27 11:09 | EXTERNAL MEDICAL SUMMARY RPT | Continuity of Care Document ---
:1950 Author Organization [place] Address [address] [place] [address] Phone Care Team Providers Name Role Phone Gi Barker Unavailable Unavailable Allergies and Intolerances date description facility type (no date) Iodinated Contrast Media [facility] (unk nown) Encounters No information. Functional Status No information. Immunizations No information. Medications date description facility 2022-09-06 00:00 Prednisone [facility] Problems date description facility 2022-09-06 00:00 Flare of rheumatoid arthritis [facility] ospital Procedures No information. Results/Labs test date author facility value unit interpret ation Result panel 1 (unknown) (no (unknown) (unknown) (no value) (units (unk nown) date) unknown) (unknown) (no (unknown) (unknown) (Allerclear) (units (u nknown) date) allergies unknown) (unknown) (no (unknown) (unknown) *Continue to take (units (unknown) date) medications as unknown) directed --> SENT TO [facility] (unknown) (no (unknown) (unknown) *Follow up with (units (unknown) date) your primary care unknown) provider in 2-3 days or call [phone] (unknown) (no (unknown) (unknown) *Return to ER if (units (unknown) date) you should have unknown) increasing pain fever swelling or any new, (unknown) (no (unknown) (unknown) *What to do: At (units (unknown) date) this time I think unknown) your body just needs adjustment to get back (unknown) (no (unknown) (unknown) *You have been (units (unknown) date) diagnosed with unknown) arthritis flare (unknown) (no (unknown) (unknown) 09/06/22 (units (unkno wn) date) unknown) (unknown) (no (unknown) (unknown) 04:03 (units (unkno wn) date) unknown) (unknown) (no (unknown) (unknown) 10 mg PO DAILY PRN (units (unknown) date) (Reason: Seasonal unknown) allergies) (unknown) (no (unknown) (unknown) 10 mg PO DAILY Qty: (unit s (unknown) date) 30 0RF unknown) (unknown) (no (unknown) (unknown) 20 mg PO BID (units (u nknown) date) unknown) (unknown) (no (unknown) (unknown) 25 mg PO DAILY (units (unknown) date) unknown) (unknown) (no (unknown) (unknown) 5 mg PO Q6H PRN (units (unknown) date) (Reason: pain) unknown) (unknown) (no (unknown) (unknown) [id number] (units (unkno wn) date) unknown) (unknown) (no (unknown) (unknown) Activity (units (unkno wn) date) Restrictions/Additio unknown) nal Instructions: (unknown) (no (unknown) (unknown) Age/Sex: 72 / M (units (unknown) date) unknown) (unknown) (no (unknown) (unknown) Allergies (units (unkn own) date) unknown) (unknown) (no (unknown) (unknown) Allergy/AdvReac (units (unknown) date) Type Severity unknown) Reaction Status Date / Time (unknown) (no (unknown) (unknown) Anal fissure (units (u nknown) date) unknown) (unknown) (no (unknown) (unknown) Anxiety and (units (un known) date) depression unknown) (unknown) (no (unknown) (unknown) Arthritis (units (unkn own) date) unknown) (unknown) (no (unknown) (unknown) Blood Pressure (units (unknown) date) 181/91 H 09/06/22 unknown) 04:03 (unknown) (no (unknown) (unknown) Blood Pressure (units (unknown) date) 181/91 H unknown) (unknown) (no (unknown) (unknown) Borderline diabetes (unit s (unknown) date) unknown) (unknown) (no (unknown) (unknown) CARDIOVASCULAR: (units (unknown) date) Regular rate and unknown) rhythm without murmurs, rubs or gallops. (unknown) (no (unknown) (unknown) Chief complaint: (units (unknown) date) Extremity unknown) Problem,Nontraumatic (unknown) (no (unknown) (unknown) Chronic edema (units ( unknown) date) (-12/2017) unknown) (unknown) (no (unknown) (unknown) Clinical (units (unkno wn) date) Impression: unknown) (unknown) (no (unknown) (unknown) Course (units (unkno wn) date) unknown) (unknown) (no (unknown) (unknown) : 1950 (units (unknown) date) Acct:[id number] unknown) (unknown) (no (unknown) (unknown) Gi Barker MD (units (unknown) date) [Primary Care unknown) Provider] (unknown) (no (unknown) (unknown) Date of Service: (units (unknown) date) 09/06/22 unknown) (unknown) (no (unknown) (unknown) Departure (units (unkn own) date) unknown) (unknown) (no (unknown) (unknown) Discharge Plan (units (unknown) date) unknown) (unknown) (no (unknown) (unknown) ER Physician: (units ( unknown) date) Chitra Reina D.O. unknown) (unknown) (no (unknown) (unknown) EXTREMITIES: Normal (unit s (unknown) date) range of motion, no unknown) clubbing or edema. Neurovascularly (unknown) (no (unknown) (unknown) Eczema (units (unkno wn) date) unknown) (unknown) (no (unknown) (unknown) Emergency Report (units (unknown) date) unknown) (unknown) (no (unknown) (unknown) Esophagitis (-2010) (unit s (unknown) date) unknown) (unknown) (no (unknown) (unknown) Exam (units (unkno wn) date) unknown) (unknown) (no (unknown) (unknown) Fatty liver (-2008) (unit s (unknown) date) unknown) (unknown) (no (unknown) (unknown) GENERAL: Alert (units (unknown) date) well-appearing unknown) 72-year-old male and in no acute distress. (unknown) (no (unknown) (unknown) GERD (units (unkno wn) date) (gastroesophageal unknown) reflux disease) (unknown) (no (unknown) (unknown) General (units (unkno wn) date) unknown) (unknown) (no (unknown) (unknown) HEENT: Head (units (un known) date) atraumatic,EOMI, unknown) pupils reactive, face symmetric, moist mucous (unknown) (no (unknown) (unknown) HPI - Extremity (units (unknown) date) Problem unknown) (unknown) (no (unknown) (unknown) HPI Narrative: (units (unknown) date) unknown) (unknown) (no (unknown) (unknown) HTN (hypertension) (units (unknown) date) unknown) (unknown) (no (unknown) (unknown) He denies any fever (unit s (unknown) date) chills chest pain unknown) shortness of breath nausea vomiting (unknown) (no (unknown) (unknown) Hiatal hernia (units ( unknown) date) unknown) (unknown) (no (unknown) (unknown) History of Present (units (unknown) date) Illness unknown) (unknown) (no (unknown) (unknown) History of (units (unk nown) date) arthroplasty of left unknown) knee () (unknown) (no (unknown) (unknown) History of (units (unk nown) date) arthroplasty of left unknown) shoulder (02/22/15) (unknown) (no (unknown) (unknown) History of carpal (units (unknown) date) tunnel surgery of unknown) right wrist (unknown) (no (unknown) (unknown) History of surgery (units (unknown) date) () unknown) (unknown) (no (unknown) (unknown) History of (units (unk nown) date) vasectomy unknown) (unknown) (no (unknown) (unknown) Home Medications (units (unknown) date) unknown) (unknown) (no (unknown) (unknown) Hx of cardiac (units ( unknown) date) catheterization unknown) () (unknown) (no (unknown) (unknown) Hx of (units (unkno wn) date) cholecystectomy unknown) (05/09/14) (unknown) (no (unknown) (unknown) Hx of cystoscopy (units (unknown) date) () unknown) (unknown) (no (unknown) (unknown) Hx of left knee (units (unknown) date) surgery () unknown) (unknown) (no (unknown) (unknown) Hx of shoulder (units (unknown) date) surgery (12/07/12) unknown) (unknown) (no (unknown) (unknown) Hypercalcemia (units ( unknown) date) unknown) (unknown) (no (unknown) (unknown) Hyperlipidemia (units (unknown) date) unknown) (unknown) (no (unknown) (unknown) Initial Vital Signs (unit s (unknown) date) unknown) (unknown) (no (unknown) (unknown) Initial Vital (units ( unknown) date) Signs: unknown) (unknown) (no (unknown) (unknown) Instructions: DI (units (unknown) date) for Rheumatoid unknown) Arthritis (unknown) (no (unknown) (unknown) Iodinated Contrast (units (unknown) date) Media Allergy Mild unknown) Itching to Verified 08/20/18 06:41 (unknown) (no (unknown) (unknown) [facility] (units (unknown) date) [address] unknown) [place] [address] (unknown) (no (unknown) (unknown) MDM - Extremity (units (unknown) date) (Nontraumatic) unknown) (unknown) (no (unknown) (unknown) MDM Narrative (units ( unknown) date) unknown) (unknown) (no (unknown) (unknown) Medical History (units (unknown) date) (Reviewed 09/06/22 @ unknown) 04:52 by Chitra Reina DO) (unknown) (no (unknown) (unknown) Medical decision (units (unknown) date) making narrative: unknown) (unknown) (no (unknown) (unknown) Medication (units (unk nown) date) Instructions unknown) Recorded Confirmed (unknown) (no (unknown) (unknown) Medication (units (unk nown) date) Instructions unknown) Recorded (unknown) (no (unknown) (unknown) Methylprednisolone (units (unknown) date) (Methylprednisolone unknown) 125 Mg/2 Ml Vial) 125 mg IV NOW ONE (unknown) (no (unknown) (unknown) Mode of arrival: (units (unknown) date) Ambulatory unknown) (unknown) (no (unknown) (unknown) NEUROLOGICAL: Alert (unit s (unknown) date) and oriented x4. unknown) (unknown) (no (unknown) (unknown) Neuropathy (units (unk nown) date) unknown) (unknown) (no (unknown) (unknown) New (units (unkno wn) date) unknown) (unknown) (no (unknown) (unknown) No Action (units (unkn own) date) unknown) (unknown) (no (unknown) (unknown) Ordered: (units (unkno wn) date) unknown) (unknown) (no (unknown) (unknown) Orders (units (unkno wn) date) unknown) (unknown) (no (unknown) (unknown) Osteoarthritis (units (unknown) date) unknown) (unknown) (no (unknown) (unknown) Oxygen Delivery (units (unknown) date) Method 09/06/22 unknown) 04:03 (unknown) (no (unknown) (unknown) Oxygen Delivery (units (unknown) date) Method Room Air unknown) (unknown) (no (unknown) (unknown) Palpitations (units (u nknown) date) unknown) (unknown) (no (unknown) (unknown) Patient (units (unkno wn) date) Disposition: Home unknown) (unknown) (no (unknown) (unknown) Patient History (units (unknown) date) unknown) (unknown) (no (unknown) (unknown) Patient has been (units (unknown) date) tapered off his unknown) hydroxychloroquine for osteoarthritis with (unknown) (no (unknown) (unknown) Patient is a (units (u nknown) date) 72-year-old male who unknown) has history of hypertension osteoarthritis (unknown) (no (unknown) (unknown) Patient: (units (unkno wn) date) Chandler Alvarado MR#: unknown) [id number] (unknown) (no (unknown) (unknown) Prednisone 40 mg (units (unknown) date) for 3 days, 30 mg unknown) for 3 days, 20 mg for 3 days, 10 mg for 3 (unknown) (no (unknown) (unknown) Prescriptions: (units (unknown) date) unknown) (unknown) (no (unknown) (unknown) Previous Rx's (units ( unknown) date) unknown) (unknown) (no (unknown) (unknown) Prostate cancer (units (unknown) date) (-2008) unknown) (unknown) (no (unknown) (unknown) Pulse Oximetry 95 (units (unknown) date) 09/06/22 04:03 unknown) (unknown) (no (unknown) (unknown) Pulse Oximetry 95 (units (unknown) date) unknown) (unknown) (no (unknown) (unknown) Pulse Rate 71 (units ( unknown) date) 09/06/22 04:03 unknown) (unknown) (no (unknown) (unknown) Pulse Rate 71 (units ( unknown) date) unknown) (unknown) (no (unknown) (unknown) RESPIRATORY: Breath (unit s (unknown) date) sounds equal unknown) bilaterally, no wheezes rales or rhonchi. (unknown) (no (unknown) (unknown) ROS Unobtainable: (units (unknown) date) All systems reviewed unknown) + are unremarkable except as noted in HPI (unknown) (no (unknown) (unknown) Referrals: (units (unk nown) date) unknown) (unknown) (no (unknown) (unknown) Related Data (units (u nknown) date) unknown) (unknown) (no (unknown) (unknown) Respiratory Rate 20 (unit s (unknown) date) 09/06/22 04:03 unknown) (unknown) (no (unknown) (unknown) Respiratory Rate 20 (unit s (unknown) date) unknown) (unknown) (no (unknown) (unknown) Review of Systems (units (unknown) date) unknown) (unknown) (no (unknown) (unknown) Rheumatoid (units (unk nown) date) arthritis flare unknown) (unknown) (no (unknown) (unknown) Right femoral (units ( unknown) date) fracture (04/13/17) unknown) (unknown) (no (unknown) (unknown) Rx Instructions: (units (unknown) date) unknown) (unknown) (no (unknown) (unknown) S/P cervical spinal (unit s (unknown) date) fusion (-1997) unknown) (unknown) (no (unknown) (unknown) SKIN: Warm, dry, no (unit s (unknown) date) laceration, no unknown) petechiae, no rashes or lesions. (unknown) (no (unknown) (unknown) Seasonal allergies (units (unknown) date) unknown) (unknown) (no (unknown) (unknown) See your PCP as (units (unknown) date) scheduled next week unknown) (unknown) (no (unknown) (unknown) Signed By: (units (unk nown) date) unknown) (unknown) (no (unknown) (unknown) Smoking Status: (units (unknown) date) Former smoker unknown) (unknown) (no (unknown) (unknown) Social History (units (unknown) date) (Reviewed 09/06/22 @ unknown) 04:52 by Chitra Reina DO) (unknown) (no (unknown) (unknown) Source: patient and (unit s (unknown) date) family unknown) (unknown) (no (unknown) (unknown) Stand Alone Forms: (units (unknown) date) Patient Portal/API unknown) (unknown) (no (unknown) (unknown) Stated complaint: (units (unknown) date) pain to unknown) body/swelling to both feet (unknown) (no (unknown) (unknown) Stop: 09/06/22 (units (unknown) date) 04:49 unknown) (unknown) (no (unknown) (unknown) Substance Use Type: (unit s (unknown) date) does not use unknown) (unknown) (no (unknown) (unknown) Surgical History (units (unknown) date) (Reviewed 09/06/22 @ unknown) 04:52 by Chitra Reina DO) (unknown) (no (unknown) (unknown) Temperature 97.2 F (units (unknown) date) L 09/06/22 04:03 unknown) (unknown) (no (unknown) (unknown) Temperature 97.2 F (units (unknown) date) L unknown) (unknown) (no (unknown) (unknown) Time Seen by (units (u nknown) date) Provider: 09/06/22 unknown) 04:48 (unknown) (no (unknown) (unknown) Vital Signs - 8 hr (units (unknown) date) unknown) (unknown) (no (unknown) (unknown) Vital Signs (units (un known) date) unknown) (unknown) (no (unknown) (unknown) Vital signs: (units (u nknown) date) unknown) (unknown) (no (unknown) (unknown) [Iodinated (units (unk nown) date) Contrast- Oral foot unknown) (unknown) (no (unknown) (unknown) alcohol intake (units (unknown) date) frequency: a few unknown) times a week (unknown) (no (unknown) (unknown) alcohol intake: (units (unknown) date) current unknown) (unknown) (no (unknown) (unknown) and IV Dye] (units (un known) date) unknown) (unknown) (no (unknown) (unknown) and below (units (unkn own) date) unknown) (unknown) (no (unknown) (unknown) and ended July (units (unknown) date) . However since unknown) stopping the medication he has had (unknown) (no (unknown) (unknown) and his doctor (units (unknown) date) decided it would be unknown) okay for him to taper off. He tapered off (unknown) (no (unknown) (unknown) as well which she (units (unknown) date) says isn't even unknown) helping. He denies any fever or chills. He (unknown) (no (unknown) (unknown) atenolol 25 mg (units (unknown) date) Tablet unknown) (unknown) (no (unknown) (unknown) atenolol 25 mg (units (unknown) date) tablet 25 mg PO unknown) DAILY 08/05/18 08/20/18 (unknown) (no (unknown) (unknown) combination calm (units (unknown) date) things down. 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 He (units (unknown) date) has an appointment unknown) with his PCP in 3 days. At this time I (unknown) (no (unknown) (unknown) his hands hips legs (unit s (unknown) date) feet. 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 (unknown) (no (unknown) (unknown) household members: (units (unknown) date) spouse unknown) (unknown) (no (unknown) (unknown) increasing joint (units (unknown) date) pain and pain unknown) becoming significantly worse. He has since (unknown) (no (unknown) (unknown) inflammation and (units (unknown) date) pain. unknown) (unknown) (no (unknown) (unknown) intact. No (units (unk nown) date) significant finger unknown) swelling joint swelling or calf pain or swelling (unknown) (no (unknown) (unknown) loratadine 10 mg (units (unknown) date) tablet 10 mg PO unknown) DAILY PRN Seasonal 08/05/18 08/05/18 (unknown) (no (unknown) (unknown) loratadine (units (unk nown) date) [Allerclear] 10 mg unknown) Tablet (unknown) (no (unknown) (unknown) membranes (units (unkn own) date) unknown) (unknown) (no (unknown) (unknown) omeprazole 20 mg (units (unknown) date) Tablet,Delayed unknown) Release (Dr/Ec) (unknown) (no (unknown) (unknown) omeprazole 20 mg (units (unknown) date) tablet,delayed 20 mg unknown) PO BID 08/05/18 08/20/18 (unknown) (no (unknown) (unknown) oxycodone 5 mg (units (unknown) date) Capsule unknown) (unknown) (no (unknown) (unknown) oxycodone 5 mg (units (unknown) date) capsule 5 mg PO Q6H unknown) PRN pain 08/05/18 08/20/18 (unknown) (no (unknown) (unknown) pain. At this time (units (unknown) date) he seems be having unknown) an arthritis flare. He is not having any (unknown) (no (unknown) (unknown) palpitations or any (unit s (unknown) date) other symptoms unknown) (unknown) (no (unknown) (unknown) prednisone 10 mg (units (unknown) date) tablet 10 mg PO unknown) DAILY #30 tabs 09/06/22 (unknown) (no (unknown) (unknown) prednisone 10 mg (units (unknown) date) tablet unknown) (unknown) (no (unknown) (unknown) previously on (units (u nknown) date) hydroxychloroquine unknown) however due to side effects he was afraid of he (unknown) (no (unknown) (unknown) release (units (unkno wn) date) unknown) (unknown) (no (unknown) (unknown) restarted the (units ( unknown) date) medication but only unknown) been on it for the last 5 days. Has pain in (unknown) (no (unknown) (unknown) rheumatoid like (units (unknown) date) features had unknown) increasing pain and restarted it and still having (unknown) (no (unknown) (unknown) think reasonable to (unit s (unknown) date) start him on steroid unknown) to see if it helps decrease his (unknown) (no (unknown) (unknown) use to the (units (unk nown) date) hydrochloroquine. unknown) Will start you on steroids and hopefully the (unknown) (no (unknown) (unknown) was previously in (units (unknown) date) [place] however to unknown) the pain they flew home early. He did call (unknown) (no (unknown) (unknown) which seems to be a (unit s (unknown) date) little bit worse. He unknown) was given oxycodone to help with pain (unknown) (no (unknown) (unknown) with rheumatoid (units (unknown) date) like features unknown) presenting today with increasing joint pain. Was (unknown) (no (unknown) (unknown) worsening or (units (u nknown) date) concerning symptoms unknown) Result panel 2 (unknown) (no (unknown) (unknown) (no value) (units (unk nown) date) unknown) (unknown) (no (unknown) (unknown) <Electronically (units (unknown) date) signed by Chitra hilario) Juliann Reina.> (unknown) (no (unknown) (unknown) (Allerclear) (units (u nknown) date) allergies unknown) (unknown) (no (unknown) (unknown) *Continue to take (units (unknown) date) medications as unknown) directed --> SENT TO [facility] [place] (unknown) (no (unknown) (unknown) *Follow up with (units (unknown) date) your primary care unknown) provider in 2-3 days or call [phone] (unknown) (no (unknown) (unknown) *Return to ER if (units (unknown) date) you should have unknown) increasing pain fever swelling or any new, (unknown) (no (unknown) (unknown) *What to do: At (units (unknown) date) this time I think unknown) your body just needs adjustment to get back (unknown) (no (unknown) (unknown) *You have been (units (unknown) date) diagnosed with unknown) arthritis flare (unknown) (no (unknown) (unknown) 09/06/22 0612 (units ( unknown) date) unknown) (unknown) (no (unknown) (unknown) 09/06/22 (units (unkno wn) date) unknown) (unknown) (no (unknown) (unknown) 04:03 (units (unkno wn) date) unknown) (unknown) (no (unknown) (unknown) 10 mg PO DAILY PRN (units (unknown) date) (Reason: Seasonal unknown) allergies) (unknown) (no (unknown) (unknown) 10 mg PO DAILY Qty: (unit s (unknown) date) 30 0RF unknown) (unknown) (no (unknown) (unknown) 20 mg PO BID (units (u nknown) date) unknown) (unknown) (no (unknown) (unknown) 25 mg PO DAILY (units (unknown) date) unknown) (unknown) (no (unknown) (unknown) 5 mg PO Q6H PRN (units (unknown) date) (Reason: pain) unknown) (unknown) (no (unknown) (unknown) [id number] (units (unkno wn) date) unknown) (unknown) (no (unknown) (unknown) Activity (units (unkno wn) date) Restrictions/Additio unknown) nal Instructions: (unknown) (no (unknown) (unknown) Age/Sex: 72 / M (units (unknown) date) unknown) (unknown) (no (unknown) (unknown) Allergies (units (unkn own) date) unknown) (unknown) (no (unknown) (unknown) Allergy/AdvReac (units (unknown) date) Type Severity unknown) Reaction Status Date / Time (unknown) (no (unknown) (unknown) Anal fissure (units (u nknown) date) unknown) (unknown) (no (unknown) (unknown) Anxiety and (units (un known) date) depression unknown) (unknown) (no (unknown) (unknown) Arthritis (units (unkn own) date) unknown) (unknown) (no (unknown) (unknown) Blood Pressure (units (unknown) date) 181/91 H 09/06/22 unknown) 04:03 (unknown) (no (unknown) (unknown) Blood Pressure (units (unknown) date) 181/91 H unknown) (unknown) (no (unknown) (unknown) Borderline diabetes (unit s (unknown) date) unknown) (unknown) (no (unknown) (unknown) CARDIOVASCULAR: (units (unknown) date) Regular rate and unknown) rhythm without murmurs, rubs or gallops. (unknown) (no (unknown) (unknown) Chief complaint: (units (unknown) date) Extremity unknown) Problem,Nontraumatic (unknown) (no (unknown) (unknown) Chronic edema (units ( unknown) date) () unknown) (unknown) (no (unknown) (unknown) Clinical (units (unkno wn) date) Impression: unknown) (unknown) (no (unknown) (unknown) Course (units (unkno wn) date) unknown) (unknown) (no (unknown) (unknown) : 1950 (units (unknown) date) Acct:[id number] unknown) (unknown) (no (unknown) (unknown) Gi Barker MD (units (unknown) date) [Primary Care unknown) Provider] (unknown) (no (unknown) (unknown) Date of Service: (units (unknown) date) 09/06/22 unknown) (unknown) (no (unknown) (unknown) Departure (units (unkn own) date) unknown) (unknown) (no (unknown) (unknown) Discharge Plan (units (unknown) date) unknown) (unknown) (no (unknown) (unknown) Discontinued (units (u nknown) date) Medications unknown) (unknown) (no (unknown) (unknown) Documented By: BACILIO (units (unknown) date) unknown) (unknown) (no (unknown) (unknown) ER Physician: (units ( unknown) date) Chitra Reina D.O. unknown) (unknown) (no (unknown) (unknown) EXTREMITIES: Normal (unit s (unknown) date) range of motion, no unknown) clubbing or edema. Neurovascularly (unknown) (no (unknown) (unknown) Eczema (units (unkno wn) date) unknown) (unknown) (no (unknown) (unknown) Emergency Report (units (unknown) date) unknown) (unknown) (no (unknown) (unknown) Esophagitis (-2010) (unit s (unknown) date) unknown) (unknown) (no (unknown) (unknown) Exam (units (unkno wn) date) unknown) (unknown) (no (unknown) (unknown) Fatty liver () (unit s (unknown) date) unknown) (unknown) (no (unknown) (unknown) GENERAL: Alert (units (unknown) date) well-appearing unknown) 72-year-old male and in no acute distress. (unknown) (no (unknown) (unknown) GERD (units (unkno wn) date) (gastroesophageal unknown) reflux disease) (unknown) (no (unknown) (unknown) General (units (unkno wn) date) unknown) (unknown) (no (unknown) (unknown) HEENT: Head (units (un known) date) atraumatic,EOMI, unknown) pupils reactive, face symmetric, moist mucous (unknown) (no (unknown) (unknown) HPI - Extremity (units (unknown) date) Problem unknown) (unknown) (no (unknown) (unknown) HPI Narrative: (units (unknown) date) unknown) (unknown) (no (unknown) (unknown) HTN (hypertension) (units (unknown) date) unknown) (unknown) (no (unknown) (unknown) He denies any fever (unit s (unknown) date) chills chest pain unknown) shortness of breath nausea vomiting (unknown) (no (unknown) (unknown) Hiatal hernia (units ( unknown) date) unknown) (unknown) (no (unknown) (unknown) History of Present (units (unknown) date) Illness unknown) (unknown) (no (unknown) (unknown) History of (units (unk nown) date) arthroplasty of left unknown) knee () (unknown) (no (unknown) (unknown) History of (units (unk nown) date) arthroplasty of left unknown) shoulder (02/22/15) (unknown) (no (unknown) (unknown) History of carpal (units (unknown) date) tunnel surgery of unknown) right wrist (unknown) (no (unknown) (unknown) History of surgery (units (unknown) date) () unknown) (unknown) (no (unknown) (unknown) History of (units (unk nown) date) vasectomy unknown) (unknown) (no (unknown) (unknown) Home Medications (units (unknown) date) unknown) (unknown) (no (unknown) (unknown) Hx of cardiac (units ( unknown) date) catheterization unknown) () (unknown) (no (unknown) (unknown) Hx of (units (unkno wn) date) cholecystectomy unknown) (05/09/14) (unknown) (no (unknown) (unknown) Hx of cystoscopy (units (unknown) date) () unknown) (unknown) (no (unknown) (unknown) Hx of left knee (units (unknown) date) surgery () unknown) (unknown) (no (unknown) (unknown) Hx of shoulder (units (unknown) date) surgery (12/07/12) unknown) (unknown) (no (unknown) (unknown) Hypercalcemia (units ( unknown) date) unknown) (unknown) (no (unknown) (unknown) Hyperlipidemia (units (unknown) date) unknown) (unknown) (no (unknown) (unknown) Initial Vital Signs (unit s (unknown) date) unknown) (unknown) (no (unknown) (unknown) Initial Vital (units ( unknown) date) Signs: unknown) (unknown) (no (unknown) (unknown) Iodinated Contrast (units (unknown) date) Media Allergy Mild unknown) Itching to Verified 08/20/18 06:41 (unknown) (no (unknown) (unknown) [facility] (units (unknown) date) [address] unknown) [place] [id number] (unknown) (no (unknown) (unknown) Last Admin: (units (un known) date) 09/06/22 04:53 Dose: unknown) 125 mg (unknown) (no (unknown) (unknown) MDM - Extremity (units (unknown) date) (Nontraumatic) unknown) (unknown) (no (unknown) (unknown) MDM Narrative (units ( unknown) date) unknown) (unknown) (no (unknown) (unknown) Medical History (units (unknown) date) (Reviewed 09/06/22 @ unknown) 04:52 by Chitra Reina DO) (unknown) (no (unknown) (unknown) Medical decision (units (unknown) date) making narrative: unknown) (unknown) (no (unknown) (unknown) Medication (units (unk nown) date) Instructions unknown) Recorded Confirmed (unknown) (no (unknown) (unknown) Medication (units (unk nown) date) Instructions unknown) Recorded (unknown) (no (unknown) (unknown) Methylprednisolone (units (unknown) date) (Methylprednisolone unknown) 125 Mg/2 Ml Vial) 125 mg IV NOW ONE (unknown) (no (unknown) (unknown) Mode of arrival: (units (unknown) date) Ambulatory unknown) (unknown) (no (unknown) (unknown) NEUROLOGICAL: Alert (unit s (unknown) date) and oriented x4. unknown) (unknown) (no (unknown) (unknown) Neuropathy (units (unk nown) date) unknown) (unknown) (no (unknown) (unknown) New (units (unkno wn) date) unknown) (unknown) (no (unknown) (unknown) No Action (units (unkn own) date) unknown) (unknown) (no (unknown) (unknown) Ordered: (units (unkno wn) date) unknown) (unknown) (no (unknown) (unknown) Orders (units (unkno wn) date) unknown) (unknown) (no (unknown) (unknown) Osteoarthritis (units (unknown) date) unknown) (unknown) (no (unknown) (unknown) Oxygen Delivery (units (unknown) date) Method 09/06/22 unknown) 04:03 (unknown) (no (unknown) (unknown) Oxygen Delivery (units (unknown) date) Method Room Air unknown) (unknown) (no (unknown) (unknown) Palpitations (units (u nknown) date) unknown) (unknown) (no (unknown) (unknown) Patient (units (unkno wn) date) Disposition: Home unknown) (unknown) (no (unknown) (unknown) Patient History (units (unknown) date) unknown) (unknown) (no (unknown) (unknown) Patient has been (units (unknown) date) tapered off his unknown) hydroxychloroquine for osteoarthritis with (unknown) (no (unknown) (unknown) Patient is a (units (u nknown) date) 72-year-old male who unknown) has history of hypertension osteoarthritis (unknown) (no (unknown) (unknown) Patient: (units (unkno wn) date) Chandler Alvarado MR#: unknown) [id number] (unknown) (no (unknown) (unknown) Prednisone 40 mg (units (unknown) date) for 3 days, 30 mg unknown) for 3 days, 20 mg for 3 days, 10 mg for 3 (unknown) (no (unknown) (unknown) Prescriptions: (units (unknown) date) unknown) (unknown) (no (unknown) (unknown) Previous Rx's (units ( unknown) date) unknown) (unknown) (no (unknown) (unknown) Prostate cancer (units (unknown) date) (-2008) unknown) (unknown) (no (unknown) (unknown) Pulse Oximetry 95 (units (unknown) date) 09/06/22 04:03 unknown) (unknown) (no (unknown) (unknown) Pulse Oximetry 95 (units (unknown) date) unknown) (unknown) (no (unknown) (unknown) Pulse Rate 71 (units ( unknown) date) 09/06/22 04:03 unknown) (unknown) (no (unknown) (unknown) Pulse Rate 71 (units ( unknown) date) unknown) (unknown) (no (unknown) (unknown) RESPIRATORY: Breath (unit s (unknown) date) sounds equal unknown) bilaterally, no wheezes rales or rhonchi. (unknown) (no (unknown) (unknown) ROS Unobtainable: (units (unknown) date) All systems reviewed unknown) + are unremarkable except as noted in HPI (unknown) (no (unknown) (unknown) Referrals: (units (unk nown) date) unknown) (unknown) (no (unknown) (unknown) Related Data (units (u nknown) date) unknown) (unknown) (no (unknown) (unknown) Respiratory Rate 20 (unit s (unknown) date) 09/06/22 04:03 unknown) (unknown) (no (unknown) (unknown) Respiratory Rate 20 (unit s (unknown) date) unknown) (unknown) (no (unknown) (unknown) Review of Systems (units (unknown) date) unknown) (unknown) (no (unknown) (unknown) Rheumatoid (units (unk nown) date) arthritis flare unknown) (unknown) (no (unknown) (unknown) Right femoral (units ( unknown) date) fracture (04/13/17) unknown) (unknown) (no (unknown) (unknown) Rx Instructions: (units (unknown) date) unknown) (unknown) (no (unknown) (unknown) S/P cervical spinal (unit s (unknown) date) fusion () unknown) (unknown) (no (unknown) (unknown) SKIN: Warm, dry, no (unit s (unknown) date) laceration, no unknown) petechiae, no rashes or lesions. (unknown) (no (unknown) (unknown) Seasonal allergies (units (unknown) date) unknown) (unknown) (no (unknown) (unknown) See your PCP as (units (unknown) date) scheduled next week unknown) (unknown) (no (unknown) (unknown) Signed By: (units (unk nown) date) unknown) (unknown) (no (unknown) (unknown) Smoking Status: (units (unknown) date) Former smoker unknown) (unknown) (no (unknown) (unknown) Social History (units (unknown) date) (Reviewed 09/06/22 @ unknown) 04:52 by Chitra Reina DO) (unknown) (no (unknown) (unknown) Source: patient and (unit s (unknown) date) family unknown) (unknown) (no (unknown) (unknown) Stand Alone Forms: (units (unknown) date) Patient Portal/API unknown) (unknown) (no (unknown) (unknown) Stated complaint: (units (unknown) date) pain to unknown) body/swelling to both feet (unknown) (no (unknown) (unknown) Stop: 09/06/22 (units (unknown) date) 04:49 unknown) (unknown) (no (unknown) (unknown) Substance Use Type: (unit s (unknown) date) does not use unknown) (unknown) (no (unknown) (unknown) Surgical History (units (unknown) date) (Reviewed 09/06/22 @ unknown) 04:52 by Chitra Reina DO) (unknown) (no (unknown) (unknown) Temperature 97.2 F (units (unknown) date) L 09/06/22 04:03 unknown) (unknown) (no (unknown) (unknown) Temperature 97.2 F (units (unknown) date) L unknown) (unknown) (no (unknown) (unknown) Time Seen by (units (u nknown) date) Provider: 09/06/22 unknown) 04:48 (unknown) (no (unknown) (unknown) Vital Signs - 8 hr (units (unknown) date) unknown) (unknown) (no (unknown) (unknown) Vital Signs (units (un known) date) unknown) (unknown) (no (unknown) (unknown) Vital signs: (units (u nknown) date) unknown) (unknown) (no (unknown) (unknown) [Iodinated (units (unk nown) date) Contrast- Oral foot unknown) (unknown) (no (unknown) (unknown) alcohol intake (units (unknown) date) frequency: a few unknown) times a week (unknown) (no (unknown) (unknown) alcohol intake: (units (unknown) date) current unknown) (unknown) (no (unknown) (unknown) and IV Dye] (units (un known) date) unknown) (unknown) (no (unknown) (unknown) and below (units (unkn own) date) unknown) (unknown) (no (unknown) (unknown) and ended July (units (unknown) date) . However since unknown) stopping the medication he has had (unknown) (no (unknown) (unknown) and his doctor (units (unknown) date) decided it would be unknown) okay for him to taper off. He tapered off (unknown) (no (unknown) (unknown) as well which she (units (unknown) date) says isn't even unknown) helping. He denies any fever or chills. He (unknown) (no (unknown) (unknown) atenolol 25 mg (units (unknown) date) Tablet unknown) (unknown) (no (unknown) (unknown) atenolol 25 mg (units (unknown) date) tablet 25 mg PO unknown) DAILY 08/05/18 08/20/18 (unknown) (no (unknown) (unknown) combination calm (units (unknown) date) things down. 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 He (units (unknown) date) has an appointment unknown) with his PCP in 3 days. At this time I (unknown) (no (unknown) (unknown) his hands hips legs (unit s (unknown) date) feet. 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 (unknown) (no (unknown) (unknown) household members: (units (unknown) date) spouse unknown) (unknown) (no (unknown) (unknown) increasing joint (units (unknown) date) pain and pain unknown) becoming significantly worse. He has since (unknown) (no (unknown) (unknown) infection no need (units (unknown) date) for blood work or unknown) further workup. He has oxycodone at home as (unknown) (no (unknown) (unknown) inflammation and (units (unknown) date) pain. At this time unknown) he is afebrile there is no evidence of (unknown) (no (unknown) (unknown) intact. No (units (unk nown) date) significant finger unknown) swelling joint swelling or calf pain or swelling (unknown) (no (unknown) (unknown) loratadine 10 mg (units (unknown) date) tablet 10 mg PO unknown) DAILY PRN Seasonal 08/05/18 08/05/18 (unknown) (no (unknown) (unknown) loratadine (units (unk nown) date) [Allerclear] 10 mg unknown) Tablet (unknown) (no (unknown) (unknown) membranes (units (unkn own) date) unknown) (unknown) (no (unknown) (unknown) needed for severe (units (unknown) date) pain. unknown) (unknown) (no (unknown) (unknown) omeprazole 20 mg (units (unknown) date) Tablet,Delayed unknown) Release (Dr/Ec) (unknown) (no (unknown) (unknown) omeprazole 20 mg (units (unknown) date) tablet,delayed 20 mg unknown) PO BID 08/05/18 08/20/18 (unknown) (no (unknown) (unknown) oxycodone 5 mg (units (unknown) date) Capsule unknown) (unknown) (no (unknown) (unknown) oxycodone 5 mg (units (unknown) date) capsule 5 mg PO Q6H unknown) PRN pain 08/05/18 08/20/18 (unknown) (no (unknown) (unknown) pain. At this time (units (unknown) date) he seems be having unknown) an arthritis flare. He is not having any (unknown) (no (unknown) (unknown) palpitations or any (unit s (unknown) date) other symptoms unknown) (unknown) (no (unknown) (unknown) prednisone 10 mg (units (unknown) date) tablet 10 mg PO unknown) DAILY #30 tabs 09/06/22 (unknown) (no (unknown) (unknown) prednisone 10 mg (units (unknown) date) tablet unknown) (unknown) (no (unknown) (unknown) previously on (units (u nknown) date) hydroxychloroquine unknown) however due to side effects he was afraid of he (unknown) (no (unknown) (unknown) release (units (unkno wn) date) unknown) (unknown) (no (unknown) (unknown) restarted the (units ( unknown) date) medication but only unknown) been on it for the last 5 days. Has pain in (unknown) (no (unknown) (unknown) rheumatoid like (units (unknown) date) features had unknown) increasing pain and restarted it and still having (unknown) (no (unknown) (unknown) think reasonable to (unit s (unknown) date) start him on steroid unknown) to see if it helps decrease his (unknown) (no (unknown) (unknown) use to the (units (unk nown) date) hydrochloroquine. unknown) Will start you on steroids and hopefully the (unknown) (no (unknown) (unknown) was previously in (units (unknown) date) [place] however to unknown) the pain they flew home early. He did call (unknown) (no (unknown) (unknown) which seems to be a (unit s (unknown) date) little bit worse. He unknown) was given oxycodone to help with pain (unknown) (no (unknown) (unknown) with rheumatoid (units (unknown) date) like features unknown) presenting today with increasing joint pain. Was (unknown) (no (unknown) (unknown) worsening or (units (u nknown) date) concerning symptoms unknown) Social History date description facility 2022-09-06 00:00 Ex-smoker (finding) [facility] Vital Signs date measurement value units 2022-09-06 00:00 BMI 32.1 kg/m2 2022-09-06 00:00 BP_diastolic 91 mmHg 2022-09-06 00:00 BP_systolic 181 mmHg 2022-09-06 00:00 heart_rate 71 /min 2022-09-06 00:00 height_metric 180.34 cm 2022-09-06 00:00 height_standard 71 in 2022-09-06 00:00 o2_saturation 95 % 2022-09-06 00:00 respiration_rate 20 /min 2022-09-06 00:00 temperature_metric 36.22 C 2022-09-06 00:00 temperature_standard 97.2 F 2022-09-06 00:00 weight_metric 104.32 kg 2022-09-06 00:00 weight_standard 229.99 lb
== END 2022-10-27 11:06 | disposition home or self-care (01) ==
LOC: ED 10:02
DX: K59.00 Constipation, unspecified (principal); Z87.891 Personal history of nicotine dependence
CPT/HCPCS: 99281; 99283

== ENCOUNTER 2022-12-16 14:38 | Outpatient (CLI) | payer MEDICARE, OTHER ==
[2022-12-16 15:52] LABS: FOLATE 19.63 ng/mL (5.90 - >24.8)
[2022-12-18 15:09] LABS: A/G RATIO 1.4 (0.7-1.7); ALBUMIN 3.8 g/dL (2.9-4.4); ALPHA-1-GLOBULIN 0.2 g/dL (0.0-0.4); ALPHA-2-GLOBULIN 0.5 g/dL (0.4-1.0); BETA GLOBULIN 0.9 g/dL (0.7-1.3); GAMMA GLOBULIN 1.2 g/dL (0.4-1.8); GLOBULIN TOTAL 2.9 g/dL (2.2-3.9); IMMUNOGLOBULIN A (IGA) 102 mg/dL (61-437); IMMUNOGLOBULIN G (IGG) 1191 mg/dL (603-1613); IMMUNOGLOBULIN M (IGM) 85 mg/dL (15-143); M-SPIKE Not Observed g/dL (Not Observed); PROTEIN TOTAL 6.7 g/dL (6.0-8.5)
== END 2022-12-16 14:39 | disposition home or self-care (01) ==
LOC: LAB 14:38
PROVIDERS: ATTEND Psychiatry & Neurology Neurology
DX: G62.81 Critical illness polyneuropathy (principal)
CPT/HCPCS: 36415; 81599; 82607; 82746; 82784; 83516; 84155; 84165; 84425; 86334

== ENCOUNTER 2023-02-23 14:22 | Emergency (ER) | payer MEDICARE, OTHER ==
[2023-02-23 14:43] VITALS: BP 140/70
== END 2023-02-23 16:40 | disposition left against medical advice (07) ==
LOC: ED 14:22
DX: Z53.21 Procedure and treatment not carried out due to patient leaving prior to being seen by health care provider (principal)

== ENCOUNTER 2023-02-23 17:42 | Emergency (ER) | payer MEDICARE, OTHER ==
[2023-02-23 18:59] LABS: BASOPHILS % (AUTO) 0.2 %; EOSINOPHILS # (AUTO) 0.1 10^3/uL (0.0-0.7); EOSINOPHILS % (AUTO) 0.8 %; HCT - HEMATOCRIT 41.8 % (42.0-52.0); HGB - HEMOGLOBIN 14.4 g/dL (14.0-18.0); LYMPHOCYTES % (AUTO) 11.2 %; MEAN CORPUSCULAR HEMOGLOBIN 31.3 pg (27.0-31.0); MEAN CORPUSCULAR HGB CONC 34.4 g/dL (32.0-36.0); MEAN CORPUSCULAR VOLUME 90.9 fL (80.0-94.0); MEAN PLATELET VOLUME 9.1 fL (7.4-11.4); MONOCYTES # (AUTO) 0.4 10^3/uL (0.0-1.0); MONOCYTES % (AUTO) 4.8 %; NEUTROPHILS % (AUTO) 82.5 %; PLT - PLATELET COUNT 155 10^3/uL (130-450); RED CELL DISTRIBUTION WIDTH 14.5 % (12.0-15.0); WHITE BLOOD COUNT 8.5 x10^3/uL (4.8-10.8)
[2023-02-23 19:15] LABS: CALCIUM 10.8 mg/dL (8.5-10.3); CREATININE 0.9 mg/dL (0.6-1.3); CRP - C-REACTIVE PROTEIN 0.8 mg/dL (<0.5); POTASSIUM 3.9 mmol/L (3.5-4.5)
--- NOTE | 2023-02-23 19:38 | ED Physician Documentation ---
History of Present Illness - Stated complaint Stated Complaint: ALLERGIC REACTION - Chief complaint Chief Complaint: Wound - History obtained from History obtained from: Patient - History of Present Illness Pain level max: 0 Pain level now: 0 - Additonal information Additional information: 72-year-old male presents to the emergency department stating he had an IVIG infusion last week. He states that approximately 2 to 3 days later started having itching to the palms of the bilateral hands and developed a rash on the right leg, this is steadily worsened since that time. No fevers. No chills. He is on prednisone 30 mg daily. He states he had a similar reaction last time to the IVIG but not as bad. No dyspnea. Nothing makes it better or worse. Has been taking Benadryl for itching. Review of Systems Constitutional: denies: Fever, Chills Cardiac: denies: Palpitations Respiratory: denies: Dyspnea, Cough, Wheezing GI: denies: Vomiting, Diarrhea Skin: denies: Rash Musculoskeletal: denies: Neck pain, Back pain Neurologic: denies: Headache PD PAST MEDICAL HISTORY - Past Medical History Past Medical History: Yes Cardiovascular: Hypertension Respiratory: None Neuro: None Endocrine/Autoimmune: None GI: GERD : None HEENT: None Psych: None Musculoskeletal: Osteoarthritis, Other Derm: None - Past Surgical History Past Surgical History: Yes General: Cholecystectomy, Colonoscopy, EGD Ortho: Knee replacement, Shoulder arthroplasty, Spine surgery, 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 - Present Medications Home Medications: Ambulatory Orders Medication Instructions Recorded Confirmed atenoloL [Atenolol] 25 mg PO DAILY 12/06/12 02/23/23 oxyCODONE [Roxicodone] 5 mg PO Q4-6H PRN 12/06/12 02/23/23 Amitriptyline [Elavil] 10 mg PO DAILY 11/10/22 02/23/23 Omeprazole 40 mg PO BID 11/10/22 02/23/23 Enzalutamide [Xtandi] 160 mg PO DAILY 02/11/23 02/23/23 predniSONE [Prednisone] 30 mg PO DAILY 02/11/23 02/23/23 - Allergies Allergies/Adverse Reactions: Allergies Allergy/AdvReac Type Severity Reaction Status Date / Time Iodinated Contrast Media Allergy Intermediate Itching Verified 02/23/23 17:45 aspirin AdvReac Unknown Verified 10/27/22 10:06 tramadol AdvReac Unknown Verified 10/27/22 10:06 - Social History Does the pt smoke?: No Smoking Status: Never smoker Does the pt drink ETOH?: Yes Does the pt have substance abuse?: No - POLST Patient has POLST: No POLST Status: Full Code PD ED PE NORMAL - Vitals Vital signs reviewed: Yes - General General: Alert and oriented X 3, No acute distress - HEENT HEENT: Moist mucous membranes - Neck Neck: Supple, no meningeal sign - Cardiac Cardiac: RRR - Respiratory Respiratory: No respiratory distress, Clear bilaterally - Abdomen Abdomen: Soft, Non tender, Non distended - Derm Derm: Warm and dry - Extremities Extremities: Other (There is an urticarial rash to the right lower extremity, blanches easily. No pustules or vesicles.) - Neuro Neuro: Alert and oriented X 3 Results - Vitals Vitals: Vital Signs - 24 hr 02/23/23 02/23/23 17:45 19:50 Temperature 36.5 C 36.3 C L Heart Rate 70 76 Respiratory 16 16 Rate Blood Pressure 132/65 H 128/72 O2 Saturation 98 100 Oxygen O2 Source Room air - Labs Labs: Laboratory Tests 02/23/23 02/23/23 02/23/23 18:53 18:53 18:53 WBC 8.5 RBC 4.60 L Hgb 14.4 Hct 41.8 L MCV 90.9 MCH 31.3 H MCHC 34.4 RDW 14.5 Plt Count 155 MPV 9.1 Neut # (Auto) 7.0 H Lymph # (Auto) 1.0 L [place] # (Auto) 0.4 Eos # (Auto) 0.1 Baso # (Auto) 0.0 Absolute Nucleated RBC 0.00 Nucleated RBC % 0.0 ESR 10 Sodium 135 Potassium 3.9 Chloride 104 Carbon Dioxide 30 Anion Gap 1.0 L BUN 20 Creatinine 0.9 Estimated GFR (MDRD) 83 L Glucose 130 H Calcium 10.8 H C-Reactive Protein 0.8 PD Medical Decision Making - ED course Complexity details: reviewed results, re-evaluated patient, considered differential, d/w patient, d/w family ED course: 72-year-old male with what appears to be a reaction to the IVIG, delayed dermatological reaction. He is already on oral steroids and is on a prolonged taper. His sed rate and CRP are negative. Does not appear cellulitic at this time. This is the second similar reaction after IVIG. Recommend he discuss with his doctor if he should continue on the IVIG or not. No wheezing. No stridor. Normal phonation. Patient counseled regarding signs and symptoms for which I believe and urgent re-evaluation would be necessary. Patient with good understanding of and agreement to plan and is comfortable going home at this time This document was made in part using voice recognition software. While efforts are made to proofread this document, sound alike and grammatical errors may occur. Departure - Departure Disposition: 01 Home, Self Care Clinical Impression: Medication reaction Qualifiers: Encounter type: initial encounter Qualified Code(s): T50.905A - Adverse effect of unspecified drugs, medicaments and biological substances, initial encounter Condition: Good Instructions: ED Drug React Allergic Follow-Up: Gi Holbrook MD [Primary Care Provider] - Within 1 week NEENA YANG MD [Physician No Access] - Comments: You appear to be having a reaction to the IVIG. This appears to be delayed skin reaction, and this can take several weeks to go away. Please continue your prednisone at home. Please follow-up with your doctor for further care. Please return for difficulty breathing, fevers, pain or other new or worrisome symptoms. Please tell your doctor before receiving your next dose of IVIG as this is likely to worsen during each cycle. Forms: PCP List Discharge Date/Time: 02/23/23 19:53
[2023-02-23 19:58] VITALS: BP 128/72
== END 2023-02-23 19:53 | disposition home or self-care (01) ==
LOC: ED 17:42
DX: L29.9 Pruritus, unspecified (principal); R21 Rash and other nonspecific skin eruption; T50.Z15A Adverse effect of immunoglobulin, initial encounter; Y92.538 Other ambulatory health services establishments as the place of occurrence of the external cause
CPT/HCPCS: 36415; 80048; 85025; 85651; 86140; 99282; 99283